=== PATIENT | male | born 1950 | race Caucasian/White ===

== ENCOUNTER 2020-07-15 10:52 | Outpatient (REF) | payer MEDICARE, BC, SELFPAY ==
[2020-07-15 12:23] LABS: Alanine Aminotransferase 24 U/L (0-40); Albumin Level 4.3 g/dL (3.5-5.0); Alkaline Phosphatase 101 U/L (39-117); Aspartate Amino Transferase 18 U/L (5-37); Bilirubin Direct 0.2 mg/dL (0.0-0.5); Bilirubin Total 0.7 mg/dL (0.0-1.0); Cholesterol 167 mg/dL; HDL Cholesterol 44 mg/dL; LDL Cholesterol Calculated 89 mg/dl; Total Protein 7.1 g/dL (6.5-8.0); Triglycerides 172 mg/dL
[2020-07-15 13:17] LABS: Reflex LDLD? No
== END 2020-07-15 10:53 | disposition home or self-care (01) ==
LOC: HO.LNP 10:52
PROVIDERS: PCP Internal Medicine; Visit Provider Internal Medicine
DX: E78.00 Pure hypercholesterolemia, unspecified (principal)
CPT/HCPCS: 80061; 80076

== ENCOUNTER 2020-11-26 16:28 | Outpatient (REF) | payer MEDICARE, BC, SELFPAY ==
[2020-11-26 16:34] LABS: Appearance Urine CLEAR; Color Urine YELLOW; Glucose Urine UA NEG (NEG); Leukocyte Esterase Urine NEG (NEG); Nitrite Urine NEG (NEG); Urine Blood NEG (NEG); Urine Ketones NEG (NEG); Urine Protein NEG (NEG-TRACE)
[2020-11-26 16:40] LABS: Bacteria Urine TRACE /LPF; RBC Urine 0 /HPF (0); WBC Urine 0 /HPF (0-4)
== END 2020-11-26 16:29 | disposition home or self-care (01) ==
LOC: HO.LNP 16:28
PROVIDERS: Visit Provider Internal Medicine
DX: R39.15 Urgency of urination (principal)
CPT/HCPCS: 81001; 87086

== ENCOUNTER → 2020-12-24 15:22 | Outpatient (BNVA) | payer MEDICARE, BC, SELFPAY | PROVIDERS: PCP Internal Medicine; Referring Provider Internal Medicine; Visit Provider Surgery | DX: K40.90 Unilateral inguinal hernia, without obstruction or gangrene, not specified as recurrent (principal) | CPT/HCPCS: 99202 ==

== ENCOUNTER 2021-01-09 10:05 | Outpatient (REF) | payer MEDICARE, BC, SELFPAY ==
[2021-01-09 10:09] LABS: MANUAL DIFF FLAG NO
[2021-01-09 10:28] LABS: Basophils Percent Auto 0.7 % (0-2); Eosinophils Absolute Auto 0.3 X10*3/uL (0.0-0.4); Eosinophils Percent Auto 4.3 % (0-4); Hematocrit 45.1 % (42-52); Hemoglobin 15.2 g/dl (14.0-18.0); Imm Gran Abs Auto 0.01 X10*3/uL (0.00-0.03); Imm Gran Pct Auto 0.2 % (0.0-0.4); Lymphocytes Absolute Auto 2.4 X10*3/uL (1.2-4.9); Lymphocytes Percent Auto 38.8 % (20-40); Mean Corpuscular HGB Conc 33.7 g/dl (31.0-36.0); Mean Corpuscular Hemoglobin 29.3 pg (27.0-33.0); Mean Corpuscular Volume 86.9 fL (80-98); Mean Platelet Volume 10.6 fL (9.4-12.4); Monocytes Absolute Auto 0.6 X10*3/uL (0.1-1.2); Monocytes Percent Auto 9.4 % (2-11); Neutrophils Absolute Auto 2.8 X10*3/uL (2.0-8.3); Neutrophils Percent Auto 46.6 % (45-73); Platelet Count 199 X10*3/uL (160-400); Red Blood Count 5.19 X10*6/uL (4.60-5.80); Red Cell Distribution Width 12.3 % (11.0-16.0); White Blood Count 6.1 X10*3/uL (4.8-10.8)
[2021-01-09 10:40] LABS: Alanine Aminotransferase 19 U/L (0-40); Albumin Level 4.3 g/dL (3.5-5.0); Alkaline Phosphatase 89 U/L (39-117); Anion Gap 11 (12-20); Aspartate Amino Transferase 16 U/L (5-37); Bilirubin Total 1.3 mg/dL (0.0-1.0); Blood Urea Nitrogen 13 mg/dL (9-16); Calcium 9.1 mg/dL (8.4-10.2); Carbon Dioxide 29 mmol/L (22-29); Chloride 107 mmol/L (96-108); Cholesterol 129 mg/dL; Estimated Glomerular Filt Rate > 60; Glucose Fasting 95 mg/dL (60-99); HDL Cholesterol 47 mg/dL; LDL Cholesterol Calculated 65 mg/dl; Sodium 143 mmol/L (135-145); Total Protein 6.8 g/dL (6.5-8.0); Triglycerides 87 mg/dL
[2021-01-09 10:53] LABS: Appearance Urine CLOUDY; Color Urine YELLOW; Glucose Urine UA NEG (NEG); Leukocyte Esterase Urine NEG (NEG); Nitrite Urine NEG (NEG); Specific Gravity - Urine 1.015 (1.005-1.025); Urine Blood NEG (NEG); Urine Ketones NEG (NEG); Urine Protein NEG (NEG-TRACE)
[2021-01-09 11:01] LABS: PSA,Total (Free>4and<10) 3.97 ng/mL (0.00-4.00)
[2021-01-09 11:32] LABS: Reflex LDLD? No
== END 2021-01-09 10:06 | disposition home or self-care (01) ==
LOC: HO.LNP 10:05
PROVIDERS: Visit Provider Internal Medicine
DX: Z12.5 Encounter for screening for malignant neoplasm of prostate (principal); E78.00 Pure hypercholesterolemia, unspecified; E87.6 Hypokalemia; N40.0 Benign prostatic hyperplasia without lower urinary tract symptoms; D72.819 Decreased white blood cell count, unspecified
CPT/HCPCS: 80053; 80061; 81003; 84153; 85025

== ENCOUNTER 2021-02-07 10:24 | Outpatient (REF) | payer MEDICARE, BC, SELFPAY ==
[2021-02-07 11:16] LABS: PSA,Total (Free>4and<10) 4.27 ng/mL (0.00-4.00)
[2021-02-10 13:21] LABS: Free Prostate Spec Ag 0.5 ng/mL; Percent Free Prostate Spec Ag 13 % (calc) (>25); Prostate Specific Ag Total 3.9 ng/mL (< OR = 4.0)
== END 2021-02-07 10:25 | disposition home or self-care (01) ==
LOC: HO.LNP 10:24
PROVIDERS: PCP Internal Medicine; Visit Provider Internal Medicine
DX: Z12.5 Encounter for screening for malignant neoplasm of prostate (principal); R97.20 Elevated prostate specific antigen [PSA]
CPT/HCPCS: 84153; 84154

== ENCOUNTER 2021-04-17 10:46 | Outpatient (REF) | payer MEDICARE, BC, SELFPAY | END 2021-04-17 10:47 | disposition home or self-care (01) | LOC: HO.LNP 10:46 | PROVIDERS: Visit Provider Internal Medicine | DX: Z12.5 Encounter for screening for malignant neoplasm of prostate (principal); N40.0 Benign prostatic hyperplasia without lower urinary tract symptoms | CPT/HCPCS: 84153 ==

== ENCOUNTER 2021-05-07 06:00 | Day surgery (SDC) | payer MEDICARE, BC, SELFPAY ==
[2021-05-01 14:59] VITALS: BMI 27.1
--- NOTE | 2021-05-06 09:07 | HO.ANESPROP2 ---
Documented by User: Brianna Zavala NP 05/06/21 09:09 HPI - Anesthesia Eval Consult details Narrative: 70yo M for Right Hernia Repair Inguinal PMFSH Active Problems Active Problems: All Active Problems (Updated 01/08/21 @ 14:34 by Nicole Cleaning RN) Puncture wound (Acute) Right inguinal hernia (Acute) Past Medical History Medical History BPH (benign prostatic hyperplasia) Hypercholesterolemia Family History Family History Father History of cancer of small intestine Paternal Grandfather Cancer of unknown origin Surgical History Surgical History H/O colonoscopy History of kidney surgery Social History Social History Are you a primary career development engineer to a significant other at home: Yes (mother, shared responsibility with siblings) Do you presently have visiting nurse or other home services: No Alcohol intake: current Patient Tobacco Use Status: Never used Tobacco Use of substances other than those prescribed or required for medical reasons: No Are you DNR?: No Advance Directives: No Advance Directives Information Provided: No Advance Directives on File: No Meds Allergies Allergy/AdvReac Type Severity Reaction Status Date / Time Iodinated Contrast Media Allergy Intermediate HIVES Verified 05/07/21 06:45 [IV Dye, Iodine Containing Contrast ] Home Medications Medication Instructions Recorded Confirmed Last Taken Type atorvastatin 40 mg tablet 40 mg PO DAILY 12/24/20 05/01/21 Unknown History tamsulosin 0.4 mg capsule 0.4 mg PO BID 12/24/20 05/01/21 Unknown History paroxetine HCl 20 mg tablet 1 tab PO DAILY 05/01/21 05/01/21 Unknown History Exam Exam Date and Time: May 06, 2021 0907 Height,Weight and Vital Signs: Height 6 ft Weight 90.718 kg Pertinent Lab Results Pertinent Lab Results: Laboratory Tests 01/09/21 01/09/21 06:55 06:55 WBC 6.1 Hgb 15.2 Hct 45.1 Plt Count 199 Sodium 143 Potassium 4.0 Chloride 107 Carbon Dioxide 29 BUN 13 Creatinine 0.87 Assessment and Plan Assessment Anesthesia Assessment: Chart Reviewed Documented by User: Nanette Sue MD 05/07/21 07:32 PMFSH Active Problems Active Problems: All Active Problems (Updated 01/08/21 @ 14:34 by Nicole Cleaning RN) Puncture wound (Acute) Right inguinal hernia (Acute) H/o sea sickness Past Medical History Medical History BPH (benign prostatic hyperplasia) Hypercholesterolemia Family History Family History Father History of cancer of small intestine Paternal Grandfather Cancer of unknown origin Family history of problems with anesthesia: No Surgical History Surgical History H/O colonoscopy History of kidney surgery History of Problems with Anesthesia: Yes (PONV with laparoscopic kidney surgery) Social History Social History Are you a primary career development engineer to a significant other at home: Yes (mother, shared responsibility with siblings) Do you presently have visiting nurse or other home services: No Alcohol intake: current Patient Tobacco Use Status: Never used Tobacco Use of substances other than those prescribed or required for medical reasons: No Are you DNR?: No Advance Directives: No Advance Directives Information Provided: No Advance Directives on File: No Meds Allergies Allergy/AdvReac Type Severity Reaction Status Date / Time Iodinated Contrast Media Allergy Intermediate HIVES Verified 05/07/21 06:45 [IV Dye, Iodine Containing Contrast ] Home Medications Medication Instructions Recorded Confirmed Last Taken Type atorvastatin 40 mg tablet 40 mg PO DAILY 12/24/20 05/01/21 Unknown History tamsulosin 0.4 mg capsule 0.4 mg PO BID 12/24/20 05/01/21 Unknown History paroxetine HCl 20 mg tablet 1 tab PO DAILY 05/01/21 05/01/21 Unknown History Exam Height,Weight and Vital Signs: Height 6 ft Weight 90.718 kg Vital Signs Temp Pulse Resp BP Pulse Ox 05/07/21 06:26 97.5 F 61 18 131/98 H 97 Airway Mallampati Class: II TM Dist: >3cm Neck ROM: Full Loose/Missing/Broken Teeth: No Heart: RRR Lungs: CTAB Assessment and Plan Assessment Anesthesia Assessment: Anesthesia Plan Discussed Final Anesthetic Review Family History of Problems with Anesthesia: No History of Problems with Anesthesia: Yes (PONV with laparoscopic kidney surgery) NPO: Yes ASA Class: II Final Preanesthetic Review: No Changes in Pt Med Stat, Meds/Allgs Chart Reviewed, Consent Obtained/Reviewed and Anes Risks/Benef Reviewed Patient Risk: Low Procedure Risk: Low Assessment/Block/Sedation in SS: Assess/Block/Sedation-SS Anesthetic Plan Anesthetic Plan: GA Disposition: Standard PACU
[2021-05-07 06:26] VITALS: BP 131/98; PULSE 61; RESP 18; TEMP 36.4; O2SAT 97
[2021-05-07] MEDS: Lactated Ringers 1,000 ML 100 ML IVCONT (06:42)
[2021-05-07] MEDS: Scopolamine 1.5 MG PATCH.TD.3 TRANSDERMA (07:29)
--- NOTE | 2021-05-07 07:30 | P.HPSUR_ITS ---
Pre-Procedural Eval Section A Date of Service: 05/07/21 The patient is an INPATIENT: No Changes since office visit: Yes Patient answered all questions; No Cold of Flu in the past 2 weeks, No New Medical Problems and No Changes in Medication The History & Physical has been completed within 30 days and I have reviewed it.: No Section B Chief Complaint: Right Inguinal hernia Details of Present Illness: Progressive increase in the right inguinal discomfort, with swelling in the right groin Relevant Family History (Specify if Yes): No Relevant Social History: None Present Medications: see Short Stay Collaborative assessment Medical History: No relevant PMH History of Previous Operations: No relevant previous surgery Allergies: Allergies Allergy/AdvReac Type Severity Reaction Status Date / Time Iodinated Contrast Allergy Intermediate HIVES Verified 05/07/21 06:45 Media [IV Dye, Iodine Containing Contrast ] Review of Systems Sugical H&P ROS: Negative: Constitution, Cardiovascular, Respiratory, Neurological, Psychiatric, Hem-Onc, Allergic/Immunologic, Gastrointestinal, Genitourinary, Musculoskeletal, Integumentary, Endocrine and Eyes/Ears/Nose /Throat Exam Surgical H&P Exam: Normal: HEENT, Normal: Heart, Normal: Lungs, Normal: Extremities, Normal: Abdomen (RIH reducible), Normal: Skin and Normal: Neurological Plan Diagnosis/Plan: Unchanged I have reviewed the history and physical and performed a pertinent physical examination on my patient. No changes have occurred unless specified.
--- NOTE | 2021-05-07 08:34 | P.OP_ITS ---
Operative Note Operative Note Date of Service: 05/07/21 Narrative: Preoperative diagnosis: right Inguinal hernia Postoperative diagnosis: same Procedure: repair of right inguinal hernia with Surgeon: Bk Cain MD Licensed Journeyman Electrician: none Anesthesia: general LMA Indications for procedure: 70-year-old male patient presenting with painful lump in the right groin. The pain is been increasing in severity he has requested repair of this right inguinal hernia. Operative findings: Large direct right inguinal hernia Specimen: none Estimated blood loss: 2 mL Complications: none Procedure details: patient was brought to the OR placed in a supine position. After administering general anesthesia the patient's abdomen was prepped with ChloraPrep and draped in a sterile fashion. a surgical time-out was called the consent confirmed. Patient received preoperative antibiotics and Venodyne boots were in place. Local anesthesia consisting of Sensorcaine 0.5% was infiltrated over the right inguinal ligament. Incision was then made with scalpel carried out through subcutaneous tissue past Silvia's fascia and up to the external oblique aponeurosis. Additional local was infiltrated below the external oblique aponeurosis. This was then incised with a scalpel wide with the Metzenbaum scissors. Spermatic cord was then dissected free surrounding inguinal canal and retracted using a Rexford drain. A large direct hernia was identified. Fibers of the cremasteric muscle were and no indirect hernia sac could be identified. Attention was then directed to the floor of the inguinal canal. The direct sac was dissected free from the spermatic cord. Fibers of the internal oblique and transversalis aponeurosis were then divided in the preperitoneal space entered. This pace was further defined using an open Ray- Niranjan sponge. A large PHS mesh was then obtained. The circular underlay was then deployed into the preperitoneal space. The overlay was then secured to the pubic tubercle, conjoined tendon, and shelving edge of the inguinal ligament using a 0 Polysorb suture. A slit was made in the mesh in the mesh wrapped around the spermatic cord at the internal ring. This was then secured to the shelving edge of the inguinal ligament using 0 Polysorb suture. The tip of the index finger was easily passing at the internal ring therefore a 2nd stitch was placed high in the internal ring to allow only the tip of the index finger to pass. The remainder of the lateral portion of the mesh was placed below the external oblique aponeurosis. External oblique aponeurosis was then closed using a running 2 0 Polysorb suture. Silvia's fascia and dermis were reapproximated using interrupted 3-0 Polysorb sutures. Skin was then closed using a running subcuticular 4-0 Polysorb suture. Steri-Strips 2 x 2 gauze and Tegaderm were then applied. The patient tolerated the procedure well. Sponge, instrument, and needle counts reported as correct. The patient was transferred to PACU in stable condition.
[2021-05-07 08:39] VITALS: BP 130/69; PULSE 78; RESP 16; TEMP 36.2; O2SAT 99
[2021-05-07 08:45] VITALS: BP 148/85; PULSE 72; RESP 16; O2SAT 96
[2021-05-07 08:50] VITALS: BP 135/77; PULSE 68; RESP 14; O2SAT 98
[2021-05-07 08:55] VITALS: BP 142/70; PULSE 82; RESP 17; O2SAT 96
[2021-05-07 09:10] VITALS: BP 138/80; PULSE 65; RESP 17; TEMP 36.2; O2SAT 98
== END 2021-05-07 10:00 | disposition home or self-care (01) ==
PROVIDERS: PCP Internal Medicine; Visit Provider Surgery
PROC: (CPT 49505; principal; 2021-05-07 07:30)
DX: K40.90 Unilateral inguinal hernia, without obstruction or gangrene, not specified as recurrent (principal); E78.00 Pure hypercholesterolemia, unspecified; N40.0 Benign prostatic hyperplasia without lower urinary tract symptoms; Z79.899 Other long term (current) drug therapy; Z91.041 Radiographic dye allergy status; Z98.890 Other specified postprocedural states
CPT/HCPCS: 49505; C1781; J0690; J1100; J1885; J2250; J2405; J3010

== ENCOUNTER → 2021-05-15 09:53 | Outpatient (BNVA) | payer MEDICARE, BC, SELFPAY | PROVIDERS: PCP Internal Medicine; Referring Provider Internal Medicine; Visit Provider Surgery | DX: Z48.815 Encounter for surgical aftercare following surgery on the digestive system (principal); Z87.19 Personal history of other diseases of the digestive system | CPT/HCPCS: 99212 ==

== ENCOUNTER → 2021-06-12 10:51 | Outpatient (BNVA) | payer MEDICARE, BC, SELFPAY | PROVIDERS: PCP Internal Medicine; Visit Provider Surgery | DX: Z48.815 Encounter for surgical aftercare following surgery on the digestive system (principal); Z87.19 Personal history of other diseases of the digestive system; Z98.890 Other specified postprocedural states | CPT/HCPCS: 99212 ==

== ENCOUNTER 2021-08-01 10:32 | Outpatient (REF) | payer MEDICARE, BC, SELFPAY ==
[2021-08-01 10:51] LABS: Alanine Aminotransferase 19 U/L (0-40); Alkaline Phosphatase 101 U/L (39-117); Aspartate Amino Transferase 16 U/L (5-37); Bilirubin Direct 0.3 mg/dL (0.0-0.5); Bilirubin Total 0.7 mg/dL (0.0-1.0); Cholesterol 152 mg/dL; HDL Cholesterol 48 mg/dL; LDL Cholesterol Calculated 87 mg/dl; Total Protein 6.8 g/dL (6.5-8.0); Triglycerides 89 mg/dL
[2021-08-01 11:16] LABS: PSA,Total (Free>4and<10) 4.36 ng/mL (0.00-4.00)
[2021-08-01 11:23] LABS: Reflex LDLD? No
[2021-08-04 11:21] LABS: Free Prostate Spec Ag 0.8 ng/mL; Percent Free Prostate Spec Ag 19 % (calc) (>25); Prostate Specific Ag Total 4.2 ng/mL (< OR = 4.0)
== END 2021-08-01 10:33 | disposition home or self-care (01) ==
LOC: HO.LNP 10:32
PROVIDERS: Visit Provider Internal Medicine
DX: Z12.5 Encounter for screening for malignant neoplasm of prostate (principal); E78.00 Pure hypercholesterolemia, unspecified; N40.0 Benign prostatic hyperplasia without lower urinary tract symptoms
CPT/HCPCS: 80061; 80076; 84153; 84154

== ENCOUNTER 2021-09-11 10:48 | Outpatient (REF) | payer MEDICARE, BC, SELFPAY ==
[2021-09-11 12:21] LABS: PSA,Total (Free>4and<10) 4.05 ng/mL (0.00-4.00)
[2021-09-12 11:21] LABS: Free Prostate Spec Ag 0.7 ng/mL; Percent Free Prostate Spec Ag 19 % (calc) (>25); Prostate Specific Ag Total 3.6 ng/mL (< OR = 4.0)
== END 2021-09-11 10:49 | disposition home or self-care (01) ==
LOC: HO.LNP 10:48
PROVIDERS: Visit Provider Internal Medicine
DX: Z12.5 Encounter for screening for malignant neoplasm of prostate (principal); N40.0 Benign prostatic hyperplasia without lower urinary tract symptoms
CPT/HCPCS: 84153; 84154

== ENCOUNTER 2022-01-09 11:33 | Outpatient (REF) | payer MEDICARE, BC, SELFPAY ==
[2022-01-09 11:38] LABS: MANUAL DIFF FLAG NO
[2022-01-09 12:06] LABS: Basophils Absolute Auto 0.1 X10*3/uL (0.0-0.2); Eosinophils Absolute Auto 0.3 X10*3/uL (0.0-0.4); Eosinophils Percent Auto 6.8 % (0-4); Hematocrit 44.7 % (42.0-52.0); Hemoglobin 15.1 g/dl (14.0-18.0); Imm Gran Abs Auto 0.01 X10*3/uL (0.00-0.03); Imm Gran Pct Auto 0.2 % (0.0-0.4); Lymphocytes Percent Auto 39.6 % (20-40); Mean Corpuscular HGB Conc 33.8 g/dl (31.0-36.0); Mean Corpuscular Hemoglobin 29.4 pg (27.0-33.0); Mean Platelet Volume 10.7 fL (9.4-12.4); Monocytes Absolute Auto 0.4 X10*3/uL (0.1-1.2); Monocytes Percent Auto 8.7 % (2-11); Neutrophils Absolute Auto 2.2 x10*3/uL (2.0-8.3); Neutrophils Percent Auto 43.7 % (45-73); Platelet Count 177 X10*3/uL (160-400); Red Blood Count 5.14 X10*6/uL (4.60-5.80); Red Cell Distribution Width 12.5 % (11.0-16.0)
[2022-01-09 12:08] LABS: Appearance Urine Clear; Color Urine Yellow; Glucose Urine UA Negative (Negative); Leukocyte Esterase Urine Negative (Negative); Nitrite Urine Negative (Negative); Urine Blood Negative (Negative); Urine Ketones Negative (Negative); Urine Protein Negative (Neg-Trace)
[2022-01-09 12:11] LABS: Bacteria Urine None Seen (None Seen); Hyaline Casts Urine 0-2 /LPF (0-2); RBC Urine 0-2 /HPF (0-2); Squamous Epithelial Cell Urine 0-2 /HPF (0-2); WBC Urine 0-5 /HPF (0-5)
[2022-01-09 12:17] LABS: Alanine Aminotransferase 16 U/L (0-40); Albumin Level 4.1 g/dL (3.5-5.0); Alkaline Phosphatase 89 U/L (39-117); Anion Gap 14 (12-20); Aspartate Amino Transferase 15 U/L (5-37); Bilirubin Total 0.7 mg/dL (0.0-1.0); Blood Urea Nitrogen 14 mg/dL (9-16); Calcium 8.6 mg/dL (8.4-10.2); Carbon Dioxide 26 mmol/L (22-29); Chloride 107 mmol/L (96-108); Cholesterol 161 mg/dL; Estimated Glomerular Filt Rate > 60; Glucose Fasting 91 mg/dL (60-99); HDL Cholesterol 44 mg/dL; LDL Cholesterol Calculated 95 mg/dl; Potassium 3.9 mmol/L (3.3-5.1); Sodium 143 mmol/L (135-145); Total Protein 6.6 g/dL (6.5-8.0); Triglycerides 111 mg/dL
[2022-01-09 12:38] LABS: PSA,Total (Free>4and<10) 3.82 ng/mL (0.00-4.00)
== END 2022-01-09 11:34 | disposition home or self-care (01) ==
LOC: HO.LNP 11:33
PROVIDERS: Visit Provider Internal Medicine
DX: E78.00 Pure hypercholesterolemia, unspecified (principal); N40.0 Benign prostatic hyperplasia without lower urinary tract symptoms; D72.819 Decreased white blood cell count, unspecified; E87.6 Hypokalemia; Z12.5 Encounter for screening for malignant neoplasm of prostate
CPT/HCPCS: 80053; 80061; 81001; 84153; 85025

== ENCOUNTER 2022-07-17 10:49 | Outpatient (REF) | payer MEDICARE, BC, SELFPAY ==
[2022-07-17 12:20] LABS: Alanine Aminotransferase 20 U/L (0-40); Albumin Level 4.1 g/dL (3.5-5.0); Alkaline Phosphatase 98 U/L (39-117); Aspartate Amino Transferase 16 U/L (5-37); Bilirubin Direct 0.3 mg/dL (0.0-0.5); Bilirubin Total 1.1 mg/dL (0.0-1.0); Cholesterol 167 mg/dL; HDL Cholesterol 48 mg/dL; LDL Cholesterol Calculated 100 mg/dl; Total Protein 6.8 g/dL (6.5-8.0); Triglycerides 95 mg/dL
[2022-07-17 14:56] LABS: Reflex LDLD? No
== END 2022-07-17 10:50 | disposition home or self-care (01) ==
LOC: HO.LNP 10:49
PROVIDERS: Visit Provider Internal Medicine
DX: E78.00 Pure hypercholesterolemia, unspecified (principal)
CPT/HCPCS: 80061; 80076

== ENCOUNTER 2022-11-06 10:40 | Day surgery (SDC) | payer MEDICARE, BC, SELFPAY ==
[2022-11-06 06:30] VITALS: BMI 29.7
--- OUTSIDE RECORDS SUMMARY | 2022-11-06 10:41 | XMS_ITS | Continuity of Care Document ---
Author Name Unknown Organization [facility] Address Unknown Care Team Providers Care Customer Relations Coordinator Name Role Phone Brenden Sapp MD Primary Care Physician [phone] En[place] [facility] [place](s): 01/03/21 - 02/02/21 [facility] Attending Physician: Marlena Price Admitting Physician: Marlena Price Referring Physician: trMarlena Allergies, Adverse Reactions, Alerts Substance Reaction Severity Status Contrast Dye Active Immunizations Given and Recorded Vaccine Date Status Refusal Reason pneumococcal 23-valent vaccine 02/21/11 Given Medications indapamide 2.5 mg oral tablet 1 tablet = 2.5 mg, By Mouth, Daily in AM, 0 Refills, Maintenance Start Date: 01/29/11 Status: Ordered paroxetine 20 mg oral tablet 1 tablet = 20 mg, By Mouth, Daily in AM, 0 Refills, Maintenance Start Date: 01/29/11 Status: Ordered pravastatin 40 mg oral tablet 1 tablet = 40 mg, By Mouth, Daily at bedtime, 0 Refills, Maintenance Start Date: 01/29/11 Status: Ordered
--- OUTSIDE RECORDS SUMMARY | 2022-11-06 10:41 | XMS_ITS | Continuity of Care Document ---
Author Name Unknown Organization [facility] Address Unknown Care Team Providers Care Fire Control System Installer Name Role Phone Brenden Sapp MD Primary Care Physician [phone] Encounter [facility] [place] Date(s): 11/27/20 - 02/02/21 [facility] Attending Physician: Juan Danielle MD Referring Physician: Brenden Sapp MD Allergies, Adverse Reactions, Alerts Substance Reaction Severity [...]
[2022-11-06 11:22] VITALS: BP 162/85; PULSE 53; RESP 17; TEMP 36.1; O2SAT 96
[2022-11-06] MEDS: Lactated Ringers 1,000 ML 50 ML IVCONT (11:42)
--- NOTE | 2022-11-06 13:07 | P.CONAN_ITS ---
HPI - Anesthesia Eval Consult details Narrative: screening, personal history of polyp PMFSH Active Problems Active Problems: All Active Problems (Updated 11/05/22 @ 14:32 by Deedee Dan RN) Puncture wound (Acute) Right inguinal hernia (Acute) S/P inguinal hernia repair (Acute 05/07/21) Past Medical History Medical History (Updated 11/05/22 @ 14:32 by Deedee Dan RN) BPH (benign prostatic hyperplasia) Cancer of kidney HTN (hypertension) Hypercholesterolemia Family History Family History Father History of cancer of small intestine Paternal Grandfather Cancer of unknown origin Family history of problems with anesthesia: No Surgical History Surgical History (Updated 11/05/22 @ 14:32 by Deedee Dan RN) H/O adenoidectomy H/O colonoscopy History of kidney surgery S/P inguinal hernia repair (05/07/21) History of Problems with Anesthesia: Yes (PONV with laparoscopic kidney surgery) Social History Social History Are you a primary critical care nurse practitioner to a significant other at home: Yes (mother, shared responsibility with siblings) Do you presently have visiting nurse or other home services: No Alcohol intake: current Alcohol intake frequency: does not drink Patient Tobacco Use Status: Never used Tobacco Advance Directives: No Advance Directives Information Provided: Yes Meds Allergies Allergy/AdvReac Type Severity Reaction Status Date / Time Iodinated Contrast Media Allergy Intermediate HIVES Verified 05/15/21 10:09 [IV Dye, Iodine Containing Contrast ] Active Medications: Current Medications Lactated Ringer's (Lr) 1,000 mls @ 50 mls/hr IVCONT .Q20H RAYRAY Last Admin: 11/06/22 11:42 Dose: 50 mls/hr Home Medications Medication Instructions Recorded Confirmed Last Taken Type atorvastatin 40 mg tablet 40 mg PO DAILY 12/24/20 05/15/21 Unknown History tamsulosin 0.4 mg capsule 0.4 mg PO BID 12/24/20 05/15/21 Unknown History paroxetine HCl 20 mg tablet 1 tab PO DAILY 05/01/21 05/15/21 Unknown History Exam Exam Date and Time: November 06, 2022 1307 Height,Weight and Vital Signs: Height 5 ft 10.5 in Weight 95.254 kg Last Vital Signs Temp 97 F 11/06/22 11:22 Pulse 53 11/06/22 11:22 Resp 17 11/06/22 11:22 BP 162/85 H 11/06/22 11:22 Pulse Ox 96 11/06/22 11:22 O2 Del Method Room Air 11/06/22 11:22 Airway Mallampati Class: I TM Dist: >3cm Neck ROM: Full Loose/Missing/Broken Teeth: No Heart: rr Lungs: cta Assessment and Plan Final Anesthetic Review Family History of Problems with Anesthesia: No History of Problems with Anesthesia: Yes (PONV with laparoscopic kidney surgery) NPO: Yes ASA Class: II Final Preanesthetic Review: No Changes in Pt Med Stat, Meds/Allgs Chart Reviewed, Consent Obtained/Reviewed and Anes Risks/Benef Reviewed Patient Risk: Low Procedure Risk: Low Anesthetic Plan Anesthetic Plan: MAC: Disposition: Standard PACU
--- NOTE | 2022-11-06 13:22 | P.HPSUR_ITS ---
Pre-Procedural Eval Section A Date of Service: 11/06/22 Section B Chief Complaint: Encounter for screening for malignant neoplasm of Details of Present Illness: see H&P Relevant Family History (Specify if Yes): No Relevant Social History: None Present Medications: see Short Stay Collaborative assessment Medical History: No relevant PMH History of Previous Operations: No relevant previous surgery Allergies: Allergies Allergy/AdvReac Type Severity Reaction Status Date / Time Iodinated Contrast Media Allergy Intermediate HIVES Verified 05/15/21 10:09 [IV Dye, Iodine Containing Contrast ] Review of Systems Sugical H&P ROS: Negative: Constitution, Cardiovascular, Respiratory, Neurological, Psychiatric, Hem-Onc, Allergic/Immunologic, Gastrointestinal, Genitourinary, Musculoskeletal, Integumentary, Endocrine and Eyes/Ear s/Nose/Throat Exam Surgical H&P Exam: Normal: HEENT, Normal: Heart, Normal: Lungs, Normal: Extremities, Normal: Abdomen, Normal: Skin and Normal: Neurological Plan Diagnosis/Plan: Unchanged I have reviewed the history and physical and performed a pertinent physical examination on my patient. No changes have occurred unless specified. Time Spent With Patient Time: Total time managing care of this patient today ____ minutes.
[2022-11-06 13:55] VITALS: BP 120/67; PULSE 57; RESP 16; TEMP 36.1; O2SAT 95
[2022-11-06 14:10] VITALS: BP 122/77; PULSE 52; RESP 16; O2SAT 95
--- NOTE | 2022-11-06 14:20 | OP_ITS ---
DATE OF SERVICE: 11/06/2022 SURGEON: Bartolome Landeros MD INDICATIONS: Colon cancer screening and prior history of polyps. PREOPERATIVE DIAGNOSIS: POSTOPERATIVE DIAGNOSIS: PROCEDURE PERFORMED: Colonoscopy to the terminal ileum with biopsy. ESTIMATED BLOOD LOSS: COMPLICATIONS: ANESTHESIA: Monitored anesthesia care. ASSISTANTS: SPECIMENS: DESCRIPTION OF PROCEDURE: A history and physical was performed. The risks and benefits of the procedure were explained to the patient. Informed consent was obtained. The patient was placed in the left lateral decubitus position. A digital rectal exam was performed and was found to be normal. The Olympus pediatric video colonoscope was introduced into the rectum and advanced to the cecum. The cecum was identified by transillumination, palpation, and identification of ileocecal valve. Examination was performed. The scope was removed. He tolerated the procedure well and was returned to the recovery area in stable condition. FINDINGS: The terminal ileum was examined and appeared normal. The visualized colonic mucosa was normal. The quality of the prep was good. There was mild sigmoid diverticulosis. A single polyp measuring less than 5 mm at 45 cm was removed with a biopsy forceps. No other polyps were identified. Retroflexed examination showed small internal hemorrhoids. IMPRESSION: Colon polyp. RECOMMENDATION: Follow up the biopsy results. MD KEITH Syed/SADAL / [id number]
[2022-11-06 14:25] VITALS: BP 135/83; PULSE 67; RESP 20; TEMP 36.1; O2SAT 96
== END 2022-11-06 14:46 | disposition home or self-care (01) ==
PROVIDERS: PCP Internal Medicine; Visit Provider Internal Medicine Gastroenterology
PROC: 0DJD8ZZ Inspection of Lower Intestinal Tract, Via Natural or Artificial Opening Endoscopic (ICD-10-PCS; CPT 45378; principal; 2022-11-06 11:50)
DX: Z12.11 Encounter for screening for malignant neoplasm of colon (principal); Z86.010 Personal history of colon polyps; Z80.0 Family history of malignant neoplasm of digestive organs; K63.5 Polyp of colon; K57.30 Diverticulosis of large intestine without perforation or abscess without bleeding; K64.8 Other hemorrhoids; K58.1 Irritable bowel syndrome with constipation; N40.0 Benign prostatic hyperplasia without lower urinary tract symptoms; I10 Essential (primary) hypertension; E78.5 Hyperlipidemia, unspecified; Z79.899 Other long term (current) drug therapy; Z85.528 Personal history of other malignant neoplasm of kidney; Z87.442 Personal history of urinary calculi; Z98.890 Other specified postprocedural states
CPT/HCPCS: 45380; 88305

== ENCOUNTER 2023-01-29 10:43 | Outpatient (REF) | payer MEDICARE, BC, SELFPAY ==
[2023-01-29 10:47] LABS: MANUAL DIFF FLAG NO
[2023-01-29 11:11] LABS: Basophils Percent Auto 0.7 % (0-2); Eosinophils Absolute Auto 0.5 X10*3/uL (0.0-0.4); Eosinophils Percent Auto 8.1 % (0-4); Hematocrit 44.9 % (42.0-52.0); Hemoglobin 15.3 g/dl (14.0-18.0); Imm Gran Abs Auto 0.01 X10*3/uL (0.00-0.03); Imm Gran Pct Auto 0.2 % (0.0-0.4); Lymphocytes Absolute Auto 2.1 X10*3/uL (1.2-4.9); Lymphocytes Percent Auto 36.7 % (20-40); Mean Corpuscular HGB Conc 34.1 g/dl (31.0-36.0); Mean Corpuscular Hemoglobin 29.4 pg (27.0-33.0); Mean Corpuscular Volume 86.3 fL (80.0-98.0); Mean Platelet Volume 10.4 fL (9.4-12.4); Monocytes Absolute Auto 0.5 X10*3/uL (0.1-1.2); Monocytes Percent Auto 9.1 % (2-11); Neutrophils Absolute Auto 2.6 x10*3/uL (2.0-8.3); Neutrophils Percent Auto 45.2 % (45-73); Platelet Count 194 X10*3/uL (160-400); Red Cell Distribution Width 12.4 % (11.0-16.0); White Blood Count 5.7 X10*3/uL (4.8-10.8)
[2023-01-29 11:12] LABS: Appearance Urine Clear; Color Urine Yellow; Glucose Urine UA Negative (Negative); Leukocyte Esterase Urine Negative (Negative); Nitrite Urine Negative (Negative); PH 6.5 (5.0-9.0); Urine Blood Negative (Negative); Urine Ketones Negative (Negative); Urine Protein Negative (Neg-Trace)
[2023-01-29 11:18] LABS: Bacteria Urine None Seen (None Seen); Hyaline Casts Urine 0-2 /LPF (0-2); RBC Urine 0-2 /HPF (0-2); Squamous Epithelial Cell Urine 0-2 /HPF (0-2); WBC Urine 0-5 /HPF (0-5)
[2023-01-29 11:33] LABS: Alanine Aminotransferase 19 U/L (0-40); Alkaline Phosphatase 88 U/L (39-117); Anion Gap 13 (12-20); Aspartate Amino Transferase 18 U/L (5-37); Bilirubin Total 0.9 mg/dL (0.0-1.0); Blood Urea Nitrogen 13 mg/dL (9-16); Calcium 9.1 mg/dL (8.4-10.2); Carbon Dioxide 26 mmol/L (22-29); Chloride 105 mmol/L (96-108); Cholesterol 148 mg/dL (<200); Estimated Glomerular Filt Rate > 60; Glucose Fasting 91 mg/dL (60-99); HDL Cholesterol 45 mg/dL (>40); LDL Cholesterol Calculated 81 mg/dL (<100); Potassium 3.8 mmol/L (3.3-5.1); Sodium 140 mmol/L (135-145); Total Protein 6.9 g/dL (6.5-8.0); Triglycerides 111 mg/dL (<150)
[2023-01-29 11:52] LABS: PSA,Total (Free>4and<10) 6.22 ng/mL (0.00-4.00)
[2023-02-01 10:58] LABS: Free Prostate Spec Ag 0.8 ng/mL; Percent Free Prostate Spec Ag 14 % (calc) (>25); Prostate Specific Ag Total 5.6 ng/mL (< OR = 4.0)
== END 2023-01-29 10:44 | disposition home or self-care (01) ==
LOC: HO.LNP 10:43
PROVIDERS: Visit Provider Internal Medicine
DX: Z12.5 Encounter for screening for malignant neoplasm of prostate (principal); E78.00 Pure hypercholesterolemia, unspecified; E87.5 Hyperkalemia; D72.819 Decreased white blood cell count, unspecified; N40.0 Benign prostatic hyperplasia without lower urinary tract symptoms
CPT/HCPCS: 80053; 80061; 81001; 84153; 84154; 85025

== ENCOUNTER 2023-05-14 09:49 | Outpatient (AMB) | payer MEDICARE, BC, SELFPAY ==
--- NOTE | 2023-05-14 10:03 | A.OFFVIS_ITS ---
Intake Vital Signs 3 05/14/23 10:05 Height 5 ft 10.5 in Weight 215 lb 2 oz BMI 30.4 BP 158/87 H Blood Pressure Location Lt brachial Position Sitting Pulse 69 Intake Visit Reasons: Right groin pain, ? hernia Intake Note: Patient is seen in office for follow up visit, following right groin pain. Pt c/o: always had discomfort for the past couple of months is getting painful, does not feel a lump, admits to constipation, straining, once had blood on stool, denies nausea, vomit, diarrhea L.OV:06/12/21 Shoe Planner Required: No Accompanied by: se Allergies Iodinated Contrast Media [IV Dye, Iodine Containing Contrast ] Allergy (Intermediate, Verified 05/14/23 10:04) HIVES Medication List - Last Reconciled 05/14/23 by Bk Cain MD atorvastatin 40 mg PO DAILY paroxetine HCl 1 tab PO DAILY tamsulosin 0.4 mg PO BID HPI HPI Comments 2 History of Present Illness0 Details 72-year-old male patient returning statu s post repair of a right inguinal hernia with mesh in 2021 now with a proximally one-month history of pain in the right groin. The pain is felt mostly when getting out of sitting position. He has been baby-sitting his 2 grandchildren and doing some lifting as a result. He is uncertain if this is what caused the injury. Denies any palpable lump, nausea, vomiting, or recent bowel changes. [facility] Medical History HTN (hypertension) Cancer of kidney BPH (benign prostatic hyperplasia) Hypercholesterolemia Surgical History H/O adenoidectomy S/P inguinal hernia repair (05/07/21) H/O colonoscopy History of kidney surgery Family History Father History of cancer of small intestine Paternal Grandfather Cancer of unknown origin Social History Are you a primary animal caretaker supervisor to a significant other at home: Yes (mother, shared responsibility with siblings) Do you presently have visiting nurse or other home services: No Alcohol intake: current Alcohol intake frequency: does not drink Patient Tobacco Use Status: Never used Tobacco Review of Systems Const All systems reviewed & are unremarkable except as noted in HPI and below Physical Exam Vital Signs: Last Vital Signs Pulse 69 05/14/23 10:05 BP 158/87 H 05/14/23 10:05 BMI result Body Mass Index 30.4 Const General: comfortable and no acute distress Nutritional Appearance: well nourished Orientation/consciousness: patient oriented x3 Resp Effort & Inspection: normal respiratory effort, no audible wheezes, no cough and no respiratory distress GI Other: Soft, nondistended, nontender, well-healed incision in the right groin with no palpable hernia noted with Valsalva maneuvers. Minimal tenderness elicited the pubis. This may indicate muscle pull causing the discomfort. Abdomen image: 2 1. Site of tenderness right groin Skin General skin exam: no rashes or lesions noted Neuro General: patient oriented x3 Extrem General: Yes no clubbing, cyanosis or edema Assessment & Plan Assessment & Plan (1) Right inguinal hernia: Code(s): K40.90 - Unilateral inguinal hernia, without obstruction or gangrene, not specified as recurrent Plan 72-year-old male patient presenting with previous history of right inguinal hernia repair now returning with some discomfort noted recently in the right groin. On examination he has a well-healed hernia incision with no evidence of infection or hernia recurrence. Minimal tenderness is elicited with deep palpation. Discomfort appears to be more from muscle strain rather than hernia recurrence. He should follow up as needed. Coding Level of Care Code Est Pt Level 3 (68229) Diagnoses Right inguinal hernia K40.90
[2023-05-14 10:05] VITALS: BP 158/87; PULSE 69; BMI 30.4
== END 2023-05-14 10:24 | disposition home or self-care (01) ==
PROVIDERS: PCP Internal Medicine; Referring Provider Internal Medicine; Visit Provider Surgery
DX: K40.90 Unilateral inguinal hernia, without obstruction or gangrene, not specified as recurrent (principal)
CPT/HCPCS: 99213

== ENCOUNTER → 2023-05-14 09:49 | Outpatient (BNVA) | payer MEDICARE, BC, SELFPAY | PROVIDERS: PCP Internal Medicine; Referring Provider Internal Medicine; Visit Provider Surgery | DX: K40.90 Unilateral inguinal hernia, without obstruction or gangrene, not specified as recurrent (principal) | CPT/HCPCS: 99212 ==

== ENCOUNTER 2023-07-30 11:25 | Outpatient (REF) | payer MEDICARE, BC, SELFPAY ==
[2023-07-30 12:37] LABS: Alanine Aminotransferase 20 U/L (0-40); Alkaline Phosphatase 91 U/L (39-117); Aspartate Amino Transferase 18 U/L (5-37); Bilirubin Direct 0.3 mg/dL (0.0-0.5); Bilirubin Total 0.7 mg/dL (0.0-1.0); Cholesterol 150 mg/dL (<200); HDL Cholesterol 44 mg/dL (>40); LDL Cholesterol Calculated 89 mg/dL (<100); Triglycerides 86 mg/dL (<150)
[2023-07-30 14:23] LABS: Reflex LDLD? No
== END 2023-07-30 11:26 | disposition home or self-care (01) ==
LOC: HO.LNP 11:25
PROVIDERS: Visit Provider Internal Medicine
DX: E78.00 Pure hypercholesterolemia, unspecified (principal)
CPT/HCPCS: 80061; 80076

== ENCOUNTER 2024-02-04 11:25 | Outpatient (REF) | payer MEDICARE, BC, SELFPAY ==
[2024-02-04 11:30] LABS: MANUAL DIFF FLAG NO
[2024-02-04 12:03] LABS: Appearance Urine Cloudy; Basophils Percent Auto 0.6 % (0-2); Color Urine Yellow; Eosinophils Absolute Auto 0.4 X10*3/uL (0.0-0.4); Eosinophils Percent Auto 6.9 % (0-4); Glucose Urine UA Negative (Negative); Hematocrit 43.6 % (42.0-52.0); Hemoglobin 14.9 g/dl (14.0-18.0); Imm Gran Abs Auto 0.01 X10*3/uL (0.00-0.03); Imm Gran Pct Auto 0.2 % (0.0-0.4); Leukocyte Esterase Urine Negative (Negative); Lymphocytes Absolute Auto 2.2 X10*3/uL (1.2-4.9); Lymphocytes Percent Auto 42.6 % (20-40); Mean Corpuscular HGB Conc 34.2 g/dl (31.0-36.0); Mean Corpuscular Hemoglobin 29.6 pg (27.0-33.0); Mean Corpuscular Volume 86.7 fL (80.0-98.0); Mean Platelet Volume 10.3 fL (9.4-12.4); Monocytes Absolute Auto 0.5 X10*3/uL (0.1-1.2); Neutrophils Absolute Auto 2.1 x10*3/uL (2.0-8.3); Neutrophils Percent Auto 40.7 % (45-73); Nitrite Urine Negative (Negative); Platelet Count 186 X10*3/uL (160-400); Red Blood Count 5.03 X10*6/uL (4.60-5.80); Red Cell Distribution Width 12.5 % (11.0-16.0); Specific Gravity - Urine 1.025 (1.005-1.025); Urine Blood Negative (Negative); Urine Ketones Negative (Negative); Urine Protein Negative (Neg-Trace); White Blood Count 5.2 X10*3/uL (4.8-10.8)
[2024-02-04 12:12] LABS: Bacteria Urine None Seen (None Seen); Hyaline Casts Urine 0-2 /LPF (0-2); RBC Urine 0-2 /HPF (0-2); Squamous Epithelial Cell Urine 0-2 /HPF (0-2); WBC Urine 0-5 /HPF (0-5)
[2024-02-04 12:43] LABS: PSA,Total (Free>4and<10) 7.07 ng/mL (0.00-4.00)
[2024-02-04 13:04] LABS: Alanine Aminotransferase 24 U/L (0-40); Albumin Level 3.9 g/dL (3.5-5.0); Alkaline Phosphatase 84 U/L (39-117); Anion Gap 11 (12-20); Aspartate Amino Transferase 23 U/L (5-37); Bilirubin Total 0.9 mg/dL (0.0-1.0); Blood Urea Nitrogen 16 mg/dL (9-16); Calcium 8.9 mg/dL (8.4-10.2); Carbon Dioxide 26 mmol/L (22-29); Chloride 108 mmol/L (96-108); Cholesterol 140 mg/dL (<200); Estimated Glomerular Filt Rate > 60; Glucose Fasting 92 mg/dL (60-99); HDL Cholesterol 43 mg/dL (>40); LDL Cholesterol Calculated 76 mg/dL (<100); Potassium 3.8 mmol/L (3.3-5.1); Sodium 141 mmol/L (135-145); Total Protein 6.7 g/dL (6.5-8.0); Triglycerides 107 mg/dL (<150)
[2024-02-07 11:48] LABS: Free Prostate Spec Ag 1.2 ng/mL; Percent Free Prostate Spec Ag 16 % (calc) (>25); Prostate Specific Ag Total 7.7 ng/mL (< OR = 4.0)
== END 2024-02-04 11:26 | disposition home or self-care (01) ==
LOC: HO.LNP 11:25
PROVIDERS: Visit Provider Internal Medicine
DX: E78.00 Pure hypercholesterolemia, unspecified (principal); N40.0 Benign prostatic hyperplasia without lower urinary tract symptoms; D72.819 Decreased white blood cell count, unspecified; Z12.5 Encounter for screening for malignant neoplasm of prostate
CPT/HCPCS: 80053; 80061; 81001; 84153; 84154; 85025

== ENCOUNTER 2024-03-13 09:42 | Outpatient (AMB) | payer BC, MEDICARE, SELFPAY ==
--- NOTE | 2024-03-13 09:45 | MHC.OFFVIS ---
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 Patient reports pain, numbness and tingling in between the 4th and 5th MCP joint of the left hand that radiates into the palm aspect. Noticed this happens when he is playing golf, says he has trouble holding golf club. he took a break from golf in January and hasn't played since due to his symptoms. they have resolved since then however would like to know what is going on before he returns to playing denies past injury and past medical treatment. 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 Patient states that at that time, he stopped playing golf for the year, and has noticed significant relief since then. Patient reports no pain at this time. Patient reports that he had 1 incident of numbness and tingling in the left hand, But this resolved without issue and has not recurred since. Patient inquires if a course of OT will be helpful for him. No other acute complaints or concerns at this time. 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 Neuro: Normal sensation of the tips of all digits of the left hand at this time Vascular: Cap refill brisk Pain: No tenderness to palpation anywhere on the left ring or small fingers No pain with range of motion testing ROM: Patient is able to make a closed fist and extend all digits of the left hand fully and without difficulty Skin: No lacerations or abrasions. General: No ecchymosis, erythema, or evidence of infection. Psych: Appears grossly normal Affect normal Attitude cooperative Assessment & Plan Assessment & Plan (1) Stiffness of finger joint of left hand: Code(s): M25.642 - Stiffness of left hand, not elsewhere classified Category: Medical Plan 1. Stiffness and acute pain of ring and small fingers of left hand Symptoms resolved Patient is educated about this condition Patient is educated about the typical recovery course At this time, patient was referred to occupational therapy for range of motion and strengthening of the left hand Patient is advised that he can return to normal activity as tolerated Patient was amenable to this plan Patient will follow-up as needed with any acute concerns Orders: Orders OT Evaluation and Treatment Today M25.642 - Stiffness of left hand, not elsewhere classified Coding Level of Care Code New Pt Level 3 (07817) Diagnoses Stiffness of finger joint of left hand M25.642
--- OUTSIDE RECORDS SUMMARY | 2024-03-15 14:03 | XMS_ITS ---
Author Organization Brenden Sapp MD Address [address] [place], [place] [id number] Care Team Providers Care Workers Compensation Analyst Name Role Phone Brenden Sapp Primary Care Provider [phone] RESULTS Component Value Reference Range Notes Complete Blood Count Auto Di ff Reviewed date:02/04/2024 12:45:51 PM Interpretation: Performing Lab:[facility], [address] [place] [phone] Notes/Report: White Blood Count 5.2 4.8-10.8 X10*3/uL [...] NRBC Abs Auto 0.000 0.0-0.012 X10*3/uL Comprehensive [place]. Panel Fa st Reviewed date:02/04/2024 05:07:43 PM Interpretation: Performing Lab:[facility], [address] [place] [phone] Notes/Report: Sodium 141 135-145 mmol/L Potassium 3.8 3.3-5.1 mmol/L Chloride 108 96-108 mmol/L Carbon Dioxide 26 22-29 mmol/L Anion Gap 11 12-20 Blood Urea Nitrogen 16 9-16 mg/dL Creatinine 0.83 0.5-1.4 mg/dL Estimated Glomerular Filt Rate > 60 NOTE: For -Guyanese individuals, multiply the result by 1.210. Chronic [...] Panel Reviewed date:02/04/2024 05:06:49 PM Interpretation: Performing Lab:[facility], [address] [place] [phone] Notes/Report: Triglycerides 107 <150 mg/dL Desirable Triglyceride: [...] Reviewed date:02/11/2024 01:45:51 PM Interpretation:IDALIA 02/10 Performing Lab:[address] [phone] Notes/Report: PSA,Total (Free>4and<10) 7.07 0.00-4.00 ng/mL PSA methodology: Neumann Alinity i Chemiluminescent Microparticle Immunoassay (CMIA) UA ClnCatch+Micro w/rflx Cul t Reviewed date:02/04/2024 12:47:13 PM Interpretation: Performing Lab:[address] [phone] Notes/Report: [id number] Urine, Clean Catch Color Urine Yellow Appearance Urine Cloudy PH 6.0 5.0-9.0 Glucose Urine UA Negative Negative mg/dL Urine Blood Negative Negative Specific [place] - Urine 1.025 1.005-1.025 Urine Protein Negative [...] Date Provider Diagnosis Brenden Sapp MD [address] [place], [place] [phone] 02/04/2024 Brenden Sapp Hypokalemia E87.6 ; Pure hypercholesterolemia E78.00 ; Prostatism N40.0 and Leukopenia, unspecified type D72.819 ASSESSMENTS Encounter Date Diagnosis Assessment Notes Treatment Notes Treatment Clinical Notes 02/04/2024 Hypokalemia (ICD-10 - E87.6) 02/04/2024 Pure hypercholestero lemia (ICD-10 - E78.00) 02/04/2024 Prostatism (ICD-10 - N40.0) 02/04/2024 Leukopenia, unspecif ied type (ICD-10 - D72.819) PLAN OF TREATMENT Next Appt Details Provider Name:Brenden Gallagher ier, 08/11/2024 08:00:00 AM, [address] [place] [address], [place] [address], [place], [place], [phone], Provider Name:Brenden barbar, 08/18/2024 10:45:00 AM, [address] [place] [address], [place] [address], [place], [phone], Provider Name:Brenden Gallagher ier, 02/09/2025 07:30:00 AM, [address] [place] [address], [place] [address], RYLIE Bhakta, [phone], Provider Name:Brenden Gallagher ier, 02/16/2025 01:00:00 PM, [address] [place] [address], [place] [address], RYLIE Bhakta, [phone],
--- OUTSIDE RECORDS SUMMARY | 2024-03-15 14:03 | XMS_ITS ---
Author Organization Brenden Sapp MD Address [address] [place] [address] [place] [phone] Care Team Providers Care Stripping Shovel Operator Name Role Phone Brenden Sapp Primary Care Provider REASON FOR VISIT Dr. Sapp and staff Encounters Encounter Location Date Provider Diagnosis Brenden Sapp MD [address] [place] [address] [place] [phone] 02/29/2024 Brenden Sapp PLAN OF TREATMENT Next Appt Details Provider Name:Brenden Gallagher ier, 08/11/2024 08:00:00 AM, [address] [place] [address], [address], [phone], Provider Name:Brenden olivo, 08/18/2024 10:45:00 AM, [address] [place] [address], [address], [phone], Provider Name:Brenden Gallagher ieantione, 02/09/2025 07:30:00 AM, [address] [place] [address], [phone], Provider Name:Brenden Gallagher ieantione, 02/16/2025 01:00:00 PM, [address] [place] [address], [phone],
--- OUTSIDE RECORDS SUMMARY | 2024-03-15 14:03 | XMS_ITS ---
Author Organization Brenden Sapp MD Address [address] [place], [place] [id number] Care Team Providers Care Arson And Bomb Investigator Name Role Phone Brenden Sapp Primary Care Provider ALLERGIES Allergen (clinical drug ingredient) Drug/Non Drug Allergy documented on EMR Reaction Allergy Type Onset Date Status IVP DYE (uncoded) rash Allergy Ac tive RESULTS Component Value Reference Range Notes Occult Blood, Stool, Guaiac Reviewed date:02/11/2024 01:36:41 PM Interpretation:Negative Performing Lab: Notes/Report: Negative Occult Blood, Stool, Guaiac Neg REASON FOR REFERRAL Reason CARPAL TUNNEL, LEFT WRIST Diagnosis 1 Carpal tunnel syndro me, left (G56.02) Referral Organization Brenden Sapp MD Referring Provider First Name Brenden Referring Provider Last Name Senait Referring Provider Speciality Internal M edicine Referred Provider Raysa Rojas Referred Provider Specialty Hand Surgery General Notes Sherrie Rogers 02/11/2024 01:42:27 PM EST > REFERRAL FAXED TO [facility] Sue MILTON Patti A 03/13/2024 12:52:40 PM EST > OFFICE NOTES RECD Referral Priority Routine Referral Appointment Date 03/14/2024 REASON FOR VISIT review labs, CBACK PSA FREE AND TOTAL MEDICATIONS Medication SIG (Take, Route, Frequency, Duration) Notes [...] HCl 20 MG TAKE 1 TABLET BY [facility] EVERY DAY IN THE MORNING FOR 90 DAYS Active Cialis 5 MG 1 tablet Orally for 30 day(s) 11/14/2014 Not-Taking MiraLax - as directed Orally N ot-Taking SOCIAL HISTORY Tobacco Use: Social History Observation Description Date Details (start date - stop date) Never Smoker NA - NA Sex Assigned At : Social History Observation Description Sex Assigned At Unknown Tobacco Use/Smoking Question Answer Notes Patient is [...] monthly (1 point) Points 2 Interpretation Negative PROBLEMS Problem Type ICD Code Onset Dates Problem Status W/U Status Risk SNOMED Code Notes Problem Carpal tunnel syndrome of left wrist (G56.02) Active confirmed 414980825807077 Problem Prostate cancer (C61) Active confirmed 968222089 Problem Carpal tunnel syndrome, left (G56.02) Active confirmed Carpal tunnel syndrome (94761763) VITAL SIGNS BMI 29.56 kg/m2 02/11/2024 Blood pressure systolic 122 mm Hg 02/11/20 24 Blood pressure diastolic 74 mm Hg 024 Height 71 in 02/11/2024 Weight 212 lbs 02/11/2024 weight is down 3 pounds [facility] 6-24 Encounters Encounter Location Date Provider Diagnosis Brenden Sapp MD [address] [place], [place] [phone] 02/11/2024 Brenden Sapp Carpal tunnel syndro me of left wrist G56.02 ; Prostate cancer C61 ; Anxiety F41.9 ; Pure hypercholesterolemia E78.00 ; Colon cancer screening Z12.11 and Depression screening Z13.31 ASSESSMENTS Encounter Date Diagnosis Assessment Notes Treatment Notes Treatment Clinical Notes 02/11/2024 Carpal tunnel syndro me of left wrist (ICD-10 - G56.02) referral to hand surgeon at [facility]/REFERRAL MADE TO DR ROJAS, THEY WILL CONTACT PATIENT 02/11/2024 Prostate cancer (ICD -10 - C61) need notes from dr taylor/ REQUEST MADE TO UROLOGY MED RECORDS 02/11/2024 Anxiety (ICD-10 - F41.9) sta ble, will contonue current regiment doing well on paroxitne 02/11/2024 Pure hypercholestero lemia (ICD-10 - E78.00) stable, will continue current regiment 02/11/2024 Colon cancer screeni ng (ICD-10 - Z12.11) guaiac negative 02/11/2024 Depression screening (ICD-10 - Z13.31) negative screen PLAN OF TREATMENT Medication Medication Name Sig Start Date Stop Date Notes Atorvastatin Calcium 40 MG take 1 tablet by mouth every day Orally Once a day PARoxetine HCl 20 MG TAKE 1 TABLET BY [facility] EVERY DAY IN THE MORNING FOR 90 DAYS Treatment Notes Assessment Notes Carpal tunnel syndrome of left wrist ref erral to hand surgeon at [facility]/REFERRAL MADE TO DR ROJAS, THEY WILL CONTACT PATIENT Prostate cancer need notes from dr abdirahman mcclelland/ REQUEST MADE TO UROLOGY MED RECORDS Anxiety stable, will contonu e current regiment Pure hypercholesterolemia stable, will c ontinue current regiment Colon cancer screening guaiac negative Depression screening negative screen Referrals Referral Date Details 03/14/2024 03/14/2024, CARPAL T UNNEL, LEFT WRIST, Raysa Bob Next Appt Details Provider Name:Brenden olivo, 08/11/2024 08:00:00 AM, [address] [place] [address], [address], [phone], Provider Name:Brenden olivo, 08/18/2024 10:45:00 AM, [address] [place] [address], [address], [phone], Provider Name:Brenden olivo, 02/09/2025 07:30:00 AM, [address] [place] [address], [address], [phone], Provider Name:Brenden olivo, 02/16/2025 01:00:00 PM, [address] [place] [address], [address] [place], [phone], Progress Notes * Examination Category Sub-Category Detail Notes General Examination GENERAL APPEARANCE: well dev eloped, well nourished, in no acute distress HEAD: normocephalic, atrau matic EYES: pupils equal, round, reactive to light and accommodation, sclera non- icteric EARS: normal THROAT: clear NECK/THYROID: neck supple, [...] stool guaiac negative ORAL CAVITY: mucosa moist History and Physical Notes * HPI (History of Present Illness) Category Sub-Category Detail Notes Depression Screening PHQ-9 Little inte rest or pleasure in doing things: Not at all Feeling down, depressed, or hopeless: No t [...] Total Score: 0 Interpretation and Intervention Depression Scree maria dolores Findings: Negative Follow-Up for Depression: : review [...] Have you had any falls with injury in the past year?: No Have you had two or more falls in the year?: No Communication Needs Communication Needs Does the patient have a hearing impairment: No Does the patient have a vision impairmen t?: Yes ?If yes, what is the vision impairment?: Glasses Does the patient have a cognition impair ment?: No Consultation Request Notes Referral Date Referring Provider Referred Provider Not es 02/11/2024 Brenden Sapp Allison CARPAL TUNNEL, LEFT WRIST
--- OUTSIDE RECORDS SUMMARY | 2024-03-15 14:04 | XMS_ITS | Patient Health Record ---
Author Organization [facility] Address [address] [place] [phone] Care Team Providers Care Astronaut Mission Specialist Name Role Phone Brenden Sapp MD Primary Care Provider Bartolome Pink Jr [phone] ALLERGIES Allergen (clinical drug ingredient) Drug/Non Drug Allergy documented on EMR Reaction Allergy Type Onset Date Status IVP dye (uncoded) Unknown Allergy Ac tive REASON FOR REFERRAL No Information MEDICATIONS Medication SIG (Take, Route, Frequency, Duration) Notes Start Date End Date Status Atorvastatin Calcium 40 MG 1 tablet Oral ly Once a day Active Flomax 0.4 MG 1 capsule Orally Onc e a day Active MiraLax (colon prep) 17 GM/SCOOP mixed with Gatorade or Crystal Light Orally begin at 5:00 p.m. the day before the procedure for 1 day 2022 Active PARoxetine HCl 20mg Active SOCIAL HISTORY Sex Assigned At : Social History Observation Description Sex Assigned At Unknown PROBLEMS Problem Type ICD Code Onset Dates Problem Status W/U Status Risk SNOMED Code Notes Problem Colon cancer screening (Z12.11) Active confirmed 113618510 Problem Irritable bowel syndrome with constipation (K58.9) Active confirmed 184922421 Problem Irritable bowel syndrome with constipation (K58.1) Active confirmed 234655436 PLAN OF TREATMENT Future Test Test Name Order Date COLONOSCOPY 06/23/2012 COLONOSCOPY 12/09/2017 COLONOSCOPY 2022 Insurance Providers Payer Name Payer Address Payer Phone Subscriber Number Group Number Insured Name Patient Relationship to Insured Coverage Start Date Coverage End Date MEDICARE OF [place] [address] [place] [address] [id number] DOMENICA ALEJANDRO Self - patient is the insured [facility] [address] [place], [place] [id number] DOMENICA ALEJANDRO Self - patient is the insured MEDICAL (GENERAL) HISTORY Medical History History ICD Code Colonoscopy 02/04/18, sessile serrated po lyp, five-year followup Elevated PSA/BPH kidney cancer 12/2010 kidney stones Hyperlipidemia Hypertension Surgical History Surgery Date(Month/Year) surgery for kidney cancer Adenoidectomy kidney stones cyst removed from back 2017 Right inguinal hernia repair 2021
--- OUTSIDE RECORDS SUMMARY | 2024-03-15 14:04 | XMS_ITS ---
Author Organization [facility] Address [address] [place] [phone] Care Team Providers Care Environmental Services Technician Name Role Phone Brenden Sapp MD Primary Care Provider Ángel Landeros Jr, Bartolome Ortiz REASON FOR VISIT Please lock 2022 office note Encounters Encounter Location Date Provider Diagnosis [facility] [address] [place] [phone] 11/03/2022 Bartolome Landeros Jr PLAN OF TREATMENT No Information
--- OUTSIDE RECORDS SUMMARY | 2024-03-15 14:04 | XMS_ITS ---
Author Organization [facility] Address [address] [place] [phone] Care Team Providers Care Flower Pot Press Operator Name Role Phone Brenden Sapp MD Primary Care Provider Ángel Landeros Jr, Bartolome Ortiz REASON FOR VISIT pathology Encounters Encounter Location Date Provider Diagnosis [facility] [address] [place] [phone] 11/25/2022 Bartolome Landeros Jr PLAN OF TREATMENT No Information
--- OUTSIDE RECORDS SUMMARY | 2024-03-15 14:04 | XMS_ITS ---
Author Organization [facility] Address [address] [place] [phone] Care Team Providers Care Gas Tender Name Role Phone Senait ALANIZ, Brenden Primary Care Provider UnavaBartolome Davenport Jr REASON FOR VISIT screening Encounters Encounter Location Date Provider Diagnosis [facility] [address] [place] [phone] 11/06/2022 Bartolome Landeros Jr Encounter for screening colonoscopy Z12.11 and Colon polyps K63.5 ASSESSMENTS Encounter Date Diagnosis Assessment Notes Treatment Notes Treatment Clinical Notes 11/06/2022 Encounter for screening colonoscopy (ICD-10 - Z12.11) 11/06/2022 Colon polyps (ICD-10 - K63.5) PLAN OF TREATMENT No Information
--- OUTSIDE RECORDS SUMMARY | 2024-03-15 14:04 | XMS_ITS | Patient Health Record ---
Author Organization Brenden Sapp MD Address [address] [place], [place] [id number] Care Team Providers Care Group Home Manager Name Role Phone Brenden Sapp Primary Care Provider ALLERGIES Allergen (clinical drug ingredient) Drug/Non Drug Allergy documented on EMR Reaction Allergy Type Onset Date Status IVP DYE (uncoded) rash Allergy Ac tive RESULTS Component Value Reference Range Notes Kelsie Horn Reviewed date:07/30/2023 12:30:57 PM Interpretation: Performing Lab:[facility], [address] [place] [phone] Notes/Report: Kelsie Horn See Note Specimen held untested for 24 hours; Call to request Chemistry testing. Liver Panel Reviewed date:07/30/2023 07:35:26 PM Interpretation: Performing Lab:[facility], [address] [place] [phone] Notes/Report: Bilirubin Total 0.7 0.0-1.0 mg/dL Bilirubin Direct 0.3 0.0-0.5 mg/dL Aspartate Amino Transferase 18 5-37 U/L Alanine Aminotransferase 20 0-40 U/L Total Protein 7.0 6.5-8.0 g/dL Albumin Level 4.0 3.5-5.0 g/dL Alkaline Phosphatase 91 39-117 U/L Lipid Panel with Reflex Reviewed date:07/30/2023 07:36:14 PM Interpretation: Performing Lab:[facility], [address] [place] [phone] Notes/Report: Triglycerides 86 <150 mg/dL Desirable Triglyceride: less than 150 mg/dL Borderline High Triglyceride 150-199 mg/dL High Triglyceride: 200-499 mg/dL Very High Triglyceride: greater than or equal to 5OO mg/dL Cholesterol 150 <200 mg/dL Desirable Cholesterol: less than 200 mg/dL Borderline High Cholesterol: 200-239 mg/dL High Cholesterol: greater than 239 mg/dL LDL Cholesterol Calculated 89 <100 mg/dL Desirable LDL: less than 100 mg/dL Near Optimal/Above Optimal LDL: 110-129 mg/dL Borderline High LDL: 130-159 mg/dL High LDL: 160-189 mg/dL Very High LDL: greater than or equal to 190 mg/dL HDL Cholesterol 44 >40 mg/dL Desirable HDL: greater than 40 mg/dL Note: This HDL assay may give artificially low results in patients with liver disease. Complete Blood Count Auto Di ff Reviewed date:02/04/2024 12:45:51 PM Interpretation: Performing Lab:[facility], [address] [place] [phone] Notes/Report: White Blood Count 5.2 4.8-10.8 X10*3/uL [...] NRBC Abs Auto 0.000 0.0-0.012 X10*3/uL Comprehensive [place]. Panel Fa st Reviewed date:02/04/2024 05:07:43 PM Interpretation: Performing Lab:[facility], [address] [place] [phone] Notes/Report: Sodium 141 135-145 mmol/L Potassium 3.8 3.3-5.1 mmol/L Chloride 108 96-108 mmol/L Carbon Dioxide 26 22-29 mmol/L Anion Gap 11 12-20 Blood Urea Nitrogen 16 9-16 mg/dL Creatinine 0.83 0.5-1.4 mg/dL Estimated Glomerular Filt Rate > 60 NOTE: For -[place] Citizen individuals, multiply the result by 1.210. Chronic [...] Panel Reviewed date:02/04/2024 05:06:49 PM Interpretation: Performing Lab:[facility], [address] [place] [phone] Notes/Report: Triglycerides 107 <150 mg/dL Desirable Triglyceride: [...] Reviewed date:02/11/2024 01:45:51 PM Interpretation:IDALIA 02/10 Performing Lab:[address] [phone] Notes/Report: PSA,Total (Free>4and<10) 7.07 0.00-4.00 ng/mL PSA methodology: Neumann Alinity i Chemiluminescent Microparticle Immunoassay (CMIA) UA ClnCatch+Micro w/rflx Cul t Reviewed date:02/04/2024 12:47:13 PM Interpretation: Performing Lab:[address] [phone] Notes/Report: [id number] Urine, Clean Catch Color Urine Yellow Appearance Urine Cloudy PH 6.0 5.0-9.0 Glucose Urine UA Negative Negative mg/dL Urine Blood Negative Negative Specific [place] - Urine 1.025 1.005-1.025 Urine Protein Negative Neg-Trace mg/dL Urine Ketones Negative Negative mg/dL Nitrite Urine Negative Negative Leukocyte Esterase Urine Negative Negative RBC Urine 0-2 0-2 /HPF WBC Urine 0-5 0-5 /HPF Squamous Epithelial Cell Urine 0-2 0-2 /HPF Bacteria Urine None Seen None Seen Hyaline Casts Urine 0-2 0-2 /LPF PSA Free and Total Reviewed date:02/11/2024 01:45:58 PM Interpretation:IDALIA 02/10 Performing Lab:[address] [phone] Notes/Report: Prostate Specific Ag Total 7.7 < OR = 4.0 ng/ mL Percent Free Prostate Spec Ag 16 >25 % (calc ) PSA(ng/mL) Free PSA(%) Estimated(x) Probability of Cancer(as%) 0-2.5 (*) Approx. 1 2.6-4.0(1) 0-27(2) 24(3) 4.1-10(4) 0-10 56 11-15 28 16-20 20 21-25 16 >or =26 8 >10(+) N/A >50 References:(1)J Carlos et al.:Urology 60: 469-474 (2001) (2)J Carlos et al.:J.Urol 168: 922-925 (2001) Free PSA(%) Sensitivity(%) Specificity(%) < or = 25 85 19 < or = 30 93 9 (3)Catalona et al.:GARY 277: 2197-5852 (1996) (4)Catalona et al.:GARY 279: 5999-1451 (1997) (x)These estimates vary with age, ethnicity, family history and ALVA results. (*)The diagnostic usefulness of % Free PSA has not been established in patients with total PSA below 2.6 ng/mL (+)In men with PSA above 10 ng/mL, prostate cancer risk is determined by total PSA alone. The Total PSA value from this assay system is standardized against the equimolar PSA standard. The test result will be approximately 20% higher when compared to the WHO-standardized Total PSA (Siemens assay). Comparison of serial PSA results should be interpreted with this fact in mind. PSA was performed using the Adilson Simba Immunoassay method. Values obtained from different assay methods cannot be used interchangeably. PSA levels, regardless of value, should not be interpreted as absolute evidence of the presence or absence of disease. THIS TEST WAS PERFORMED AT: [facility] [address] [address] JOCELYNE PRICE MD Free Prostate Spec Ag 1.2 Occult Blood, Stool, Guaiac Reviewed date:02/11/2024 01:36:41 PM Interpretation:Negative Performing Lab: Notes/Report: Negative Occult Blood, Stool, Guaiac Neg REASON FOR REFERRAL Reason right groin pain Diagnosis 1 Right groin pain (R1 0.31) Referral Organization Brenden Sapp MD Referring Provider First Name Brenden Referring Provider Last Name Senait Referring Provider Speciality Internal M edicine Referred Provider Bk Bobo Referred Provider Specialty Surgery General Notes Shanel Dumont 09:35:06 AM EST > patient is aware of appt Referral Priority Routine Referral Appointment Date 05/14/2023 Reason CARPAL TUNNEL, LEFT WRIST Diagnosis 1 Carpal tunnel syndro me, left (G56.02) Referral Organization Brenden Sapp MD Referring Provider First Name Brenden Referring Provider Last Name Senait Referring Provider Speciality Internal M edicine Referred Provider Raysa Garcia Referred Provider Specialty Hand Surgery General Notes hSerrie Rogers 02/11/2024 01:42:27 PM EST > REFERRAL [facility]XED TO [facility] Sue MILTON Patti A 03/13/2024 12:52:40 PM EST > OFFICE NOTES RECD Referral Priority Routine Referral Appointment Date 03/14/2024 MEDICATIONS Medication SIG (Take, Route, Frequency, Duration) Notes Start Date End Date Status MiraLax - as directed Orally N ot-Taking Nitroglycerin 2 % as directed 1/4 inch Transdermal Once a day as needed with pain for 30 days 03/19/2016 Not-Taking LORazepam 1 MG 1 tablet at bedtime as needed Orally Once a day 02/11/2016 Not-Taking Atorvastatin Calcium 40 MG take 1 tablet by mouth every day Orally Once a day Active PARoxetine HCl 20 MG TAKE 1 TABLET BY MO UT EVERY DAY IN THE MORNING FOR 90 DAYS for 90 Active Cialis 5 MG 1 tablet Orally for 30 day(s) 11/14/2014 Not-Taking IMMUNIZATIONS Vaccine Route Administration Date Status Comme nts Flu Vaccine Unknown 01/06/2012 Administered given at wo rk Flu Vaccine Unknown 12/21/2012 Administered Had flu claudette t at work Flu Vaccine Unknown 12/12/2013 Administered Work thru V NA Flu Vaccine Unknown 12/19/2014 Administered At work PPSV23 (Pnemovax) IM Intramuscular 11/18/2015 Administered Fluarix Quadrivalent IM Intramuscular 12/31/2015 Administe red Shingles IM Intramuscular 05/28/2016 Administered Fluarix Quadrivalent IM Intramuscular 12/15/2016 Administe red Prevnar 13 IM Intramuscular 06/21/2017 Administered Fluarix Quadrivalent IM Intramuscular 12/21/2017 Administe red Fluarix Quadrivalent IM Intramuscular 12/27/2018 Administe red Influenza High Dose Unknown 01/02/2020 Administered [facility] TDaP Unknown 01/08/2020 Administered had at [facility] SARS-COV-2 Pfizer Unknown 06/10/2020 Administered SARS-COV-2 Pfizer Unknown 07/01/2020 Administered Influenza High Dose IM Intramuscular 01/09/2021 Administer ed SARS-COV-2 Pfizer Unknown 01/30/2021 Administered PPSV23 (Pnemovax) IM Intramuscular 04/17/2021 Administered Influenza High Dose IM Intramuscular 01/09/2022 Administer ed Influenza High Dose Unknown 01/01/2023 Administered SARS-COV-2 Moderna 2022 Unknown 04/18/2023 Administered [facility] Influenza High Dose Unknown 01/11/2024 Administered SOCIAL HISTORY Tobacco Use: Social History Observation [...] W/U Status Risk SNOMED Code Notes Problem Hypokalemia (E87.6) Active confirmed 43 808346 Problem Prostatism (N40.0) Active confirmed 114 61758 Problem Anxiety (F41.9) Active confirmed 152730 02 Problem Diverticulitis (K57.92) Active confirmed 127895896 Problem Slow transit constipation (K59.01) Active confirmed 93053410 Problem Prostate cancer (C61) Active confirmed 744660043 Problem Cervical disc diseas e (M50.90) Active confirmed 408303289 Problem History of diverticulitis (Z87.19) Active confirmed 797050956121789 Problem Carpal tunnel syndro me of left wrist (G56.02) Active confirmed 3502940179619 02 Problem Leukopenia, unspecified type (D72.819) Active confirmed Leukopenia (65682893) Problem Moderate episode of recurrent major depressive disorder (F33.1) Active confirmed 755456515 Problem 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) Active confirmed 96095240 Problem Pure hypercholesterolemia (E78.00) Active confirmed 503565694 Problem Serrated polyp of colon (K63.5) Active confirmed 855559252 Problem Carpal tunnel syndrome, left (G56.02) Active confirmed Carpal tunnel syndrome (30407853) VITAL SIGNS Blood pressure diastolic 74 mm Hg 02/11/2024 paulo ght is down 3 pounds since 08-09-23 Height 71 in 02/11/2024 weight is down 3 pounds since 08-09-23 Blood pressure systolic 122 mm Hg 02/11/2024 weig ht is down 3 pounds since 08-09-23 Weight 212 lbs 02/11/2024 weight is down 3 pounds since 08-09-23 BMI 29.56 kg/m2 02/11/2024 weight is down 3 pounds since 08-09-23 Encounters Encounter Location Date Provider Diagnosis Brenden Sapp MD [address] [place] [id number] 02/11/2024 Brenden Sapp Carpal tunnel syndro me of left wrist G56.02 ; Prostate cancer C61 ; Anxiety F41.9 ; Pure hypercholesterolemia E78.00 ; Colon cancer screening Z12.11 and Depression screening Z13.31 Brenden Sapp MD [address] [place] [id number] 07/30/2023 Brenden Sapp Pure hypercholestero lemia E78.00 Brenden Sapp MD [address] [place] [id number] 02/04/2024 Brenden Sapp Hypokalemia E87.6 ; Pure hypercholesterolemia E78.00 ; Prostatism N40.0 and Leukopenia, unspecified type D72.819 Brenden Sapp MD [address] [place] [id number] 08/09/2023 Brenden Sapp Pure hypercholestero lemia E78.00 ; Prostatism N40.0 ; Sebaceous cyst L72.3 and Acute diarrhea R19.7 Brenden Sapp MD [address] [place] [id number] 05/07/2023 Brenden Sapp Right groin pain R10 .31 Brenden Sapp MD [address] [place] [id number] 05/31/2023 Brenden Sapp Right groin pain R10 .31 and Elevated PSA R97.20 Brenden Sapp MD [address] [place] [id number] 08/31/2023 Brenden Sapp MD [address] [place] [id number] 02/29/2024 Brenden Sapp ASSESSMENTS Encounter Date Diagnosis Assessment Notes Treatment Notes Treatment Clinical Notes 02/11/2024 Prostate cancer (ICD -10 - C61) need notes from dr damon/ REQUEST MADE TO UROLOGY MED RECORDS 02/11/2024 Carpal tunnel syndro me of left wrist (ICD-10 - G56.02) referral to hand surgeon at [facility]/REFERRAL MADE TO DR GARCIA, THEY WILL CONTACT PATIENT 07/30/2023 Pure hypercholestero lemia (ICD-10 - E78.00) 02/04/2024 Hypokalemia (ICD-10 - E87.6) 02/04/2024 Pure hypercholestero lemia (ICD-10 - E78.00) 08/09/2023 Prostatism (ICD-10 - N40.0) seeing urology 08/09/2023 Pure hypercholestero lemia (ICD-10 - E78.00) observe, will continue current regiment 05/07/2023 Right groin pain (IC D-10 - R10.31) referral to dr bobo 05/31/2023 Elevated PSA (ICD-10 - R97.20) make appt with dr damon for elevated psa/ referral in system, already has an appt with Dr. Damon in September 2023 patient said he would call to try and get in sooner for his elevated PSA 05/31/2023 Right groin pain (IC D-10 - R10.31) was evaluated by dr davila and no hernia thinks it was scar tissue 02/11/2024 Anxiety (ICD-10 - F41.9) sta ble, will contonue current regiment doing well on paroxitne 02/04/2024 Prostatism (ICD-10 - N40.0) 08/09/2023 Sebaceous cyst (ICD- 10 - L72.3) 02/11/2024 Pure hypercholestero lemia (ICD-10 - E78.00) stable, will continue current regiment 02/04/2024 Leukopenia, unspecif ied type (ICD-10 - D72.819) 08/09/2023 Acute diarrhea (ICD- 10 - R19.7) if it doesn't get better to let me know and will do stool for c dificil 02/11/2024 Colon cancer screeni ng (ICD-10 - Z12.11) guaiac negative 02/11/2024 Depression screening (ICD-10 - Z13.31) negative screen PLAN OF TREATMENT Pending Test Test Name Order Date PSA, TOTAL 01/03/2019 Next Appt Details Provider Name:Brendenlen Gallagher ier, 08/11/2024 08:00:00 AM, [address] [place] [address], [address], [phone], Provider Name:Brenden Gallagher ier, 08/18/2024 10:45:00 AM, [address] [place] [address], [address], [phone], Provider Name:Brenden Gallagher ier, 02/09/2025 07:30:00 AM, [address] [place] [address], [address], [phone], Provider Name:Brendenlen Gallagher ier, 02/16/2025 01:00:00 PM, [address] [place] [address], [phone], Insurance Providers Payer Name Payer Address Payer Phone Subscriber Number Group Number Insured Name Patient Relationship to Insured Coverage Start Date Coverage End Date MEDICARE NHIC [address] [place] [address] [id number] Robert Valderrama Self - patient is the insured [employer] [facility] [address] [place], [place] [id number] JannieNoeler Self - patient is the insured MEDICAL (GENERAL) HISTORY Medical History History ICD Code colonoscopy 07/01/2012 - repe at in 5 years w/Dr. Landeros; colonoscopy 02/04/18 - Dr. Tigre due for recall in 02/2023.11/06/22 Colonoscopy pending path
== END 2024-03-13 10:02 | disposition home or self-care (01) ==
PROVIDERS: PCP Internal Medicine
DX: M25.642 Stiffness of left hand, not elsewhere classified (principal)
CPT/HCPCS: 99203

== ENCOUNTER 2024-08-11 09:47 | Outpatient (REF) | payer MEDICARE, BC, SELFPAY ==
--- OUTSIDE RECORDS SUMMARY | 2024-08-11 10:10 | XMS_ITS ---
Author Organization Brenden Sapp MD Address [address] [place] [phone] Care Team Providers Care Cow Puncher Name Role Phone Brenden Sapp Primary Care Provider [phone] REASON FOR VISIT FASTING LIPIDS Encounters Encounter Location Date Provider Diagnosis Brenden Sapp MD [address] [place] [address] [place] [phone] 08/11/2024 Brenden Sapp Pure hypercholestero lemia E78.00 Assessments Encounter Date Diagnosis (ICD Code) Assessment Notes Treatment Notes Treatment Clinical Notes Section Notes 08/11/2024 Pure hypercholesterolemia (ICD-10 - E78.00) Plan Of Treatment Pending Test Test Name Order Date Liver Panel 08/11/2024 Lipid Panel with Reflex 08/11/2024 Next Appt Details Provider Name:Brenden olivo, 08/18/2024 10:45:00 AM, [address] [place] [address], [phone], Provider Name:Brenden olivo, 02/09/2025 07:30:00 AM, [address] [place] [address], [address], [phone], Provider Name:Brenden olivo, 02/16/2025 01:00:00 PM, [address] [place] [address], [phone], Progress Notes * Robert ALEJANDRO CDOB:1950 (73 yo M)Acc No.[id number]:08/11/2024 Progress Note Patient:?Robert ALEJANDRO Provider:?Brenden Sapp MD :1950???Age:73 Y???Sex:Male Jb e:08/11/2024 Address: [place], [id number] Subjective: * Chief Complaints: * ???1. FASTING LIPIDS. * Medical History:? Objective: * Vitals:? Assessment: * Assessment: 1.?Pure hypercholesterolemia - E78.00 (Primary)??? Plan: * Treatment: * Procedure Codes:?78043 VENIP UNCT, ROUTINE* * * The named appointment provid er may or may not be the originator of this progress note, and it is not deemed complete until electronically signed by the appointment provider. Sign off status: Pending * Provider:?Brenden Sapp MD Date:?0 08/11/2024 Generated for Los virk/Vania/Jaclynitting on:?08/11/2024 10:10 AM EDT
--- OUTSIDE RECORDS SUMMARY | 2024-08-11 10:10 | XMS_ITS ---
Author Organization Brenden Sapp MD Address [address] [place], [place] [phone] Care Team Providers Care Fiberglass Finisher Name Role Phone Brenden Sapp Primary Care [...] 20 MG TAKE 1 TABLET BY [place] [facility] EVERY DAY IN THE MORNING FOR 90 DAYS for 90 Active LORazepam 1 MG 1 tablet at bedtime as needed Orally Once a day 02/11/2016 Not-Taking MiraLax - as directed Orally N ot-Taking Atorvastatin Calcium 40 MG take 1 tablet by mouth every day Orally Once a day Active Encounters Encounter Location Date Provider Diagnosis Brenden Sapp MD [address] [place], [place] [phone] 05/25/2024 Brenden Sapp Plan Of Treatment Next Appt Details Provider Name:Brenden olivo, 08/18/2024 10:45:00 AM, [address] [facility], [address], [place], [place], [phone], Provider Name:Brenden olivo, 02/09/2025 07:30:00 AM, [address], [address], [place], [place], [phone], Provider Name:Brenden Gallagher ier, 02/16/2025 01:00:00 PM, [address] [facility], [address], [place], [place], [phone], Progress Notes * JAVONNoel Borjaer CDOB:1950 (73 yo M)Acc No.[id number]:05/25/2024 Patient:?JAVON Robert C Provider:?Brenden Sapp MD :1950???Age:73 Y???Sex:Male Jb e:05/25/2024 Address:[address] [place] [address] [facility] [id number] Subjective: * Chief Complaints: * ???1. Patient did not do a T [facility], tried to cancel. * HPI: ???Symptom(s):?Telehealth?Total time spend talking with patient (minutes)?0.? * ROS:?General/Constitutional:?Denies?Headache.?ENT:?Admits?Sore throat.? * Medical History:?colonoscopy 07/01/2012 - repeat in 5 years w/Dr. Landeros; colonoscopy 02/04/18 - Dr. Landeros due for recall in 02/2023.11/06/22 Colonoscopy pending path. * Medications:?Taking Atorvast atin Calcium 40 MG Tablet take 1 tablet [...] 5 MG Tablet 1 tablet Orally * Allergies:?IVP DYE: rash. Objective: * Vitals:?Wt-k.26. Assessment: Plan: * Treatment: * * The named appointment provid er may or may not be the originator of this progress note, and it is not deemed complete until electronically signed by the appointment provider. Sign off status: Pending * Provider:?Brenden Sapp MD Date:?0 05/25/2024 Generated for Los virk/Vania/Jaclynitting on:?08/11/2024 10:10 AM EDT History and Physical Notes * HPI (History of Present Illness) Category Sub-Category Detail Notes Category Not es Symptom(s) Telehealth Total time spend talking with patient (minutes): 0
--- OUTSIDE RECORDS SUMMARY | 2024-08-11 10:10 | XMS_ITS ---
Author Organization Brenden Sapp MD Address [address] [facility] [address] [place] [phone] Care Team Providers Care Rough And Trueing Machine Operator Name Role Phone Brenden Sapp Primary Care Provider REASON FOR VISIT Dr. Sapp and staff Encounters Encounter Location Date Provider Diagnosis Brenden Sapp MD [address] [place] [address] [place] [phone] 02/29/2024 Brenden Sapp Plan Of Treatment Next Appt Details Provider Name:Brenden Gallagher ier, 08/18/2024 10:45:00 AM, [address] [place] [address], [address], [phone], Provider Name:Brenden Gallagher ier, 02/09/2025 07:30:00 AM, [address] [place] [address], [address], [phone], Provider Name:Brenden Gallagher ier, 02/16/2025 01:00:00 PM, [address] [place] [address], [address], [phone], Progress Notes * Robert ALEJANDRO CDOB:1950 (73 yo M)Acc No.[id number]:02/29/2024 Patient:?Robert Alejandro :1950???Age:73 Y???Sex:Male Address:[address] [place] * true * Date:? Generated for Los virk/Vania/Jaclynitting on:?08/11/2024 10:10 AM EDT
--- OUTSIDE RECORDS SUMMARY | 2024-08-11 10:10 | XMS_ITS | Patient Health Record ---
Author Organization Brenden Sapp MD Address [address] [place], [place] [phone] Care Team Providers Care Distribution Sales Manager Name Role Phone Brenden Sapp Primary Care Provider Allergies Allergen (clinical drug ingredient) Drug/Non Drug Allergy documented on EMR Reaction Allergy Type Onset Date Status IVP DYE (uncoded) rash Allergy Ac tive Results Component Value Reference Range Notes Complete Blood Count Auto Di ff Reviewed date:02/04/2024 12:45:51 PM Interpretation: Performing Lab:[facility], [address] [place] [phone] Notes/Report: White Blood Count 5.2 4.8-10.8 X10*3/uL [...] NRBC Abs Auto 0.000 0.0-0.012 X10*3/uL Comprehensive [place]. Panel Fa st Reviewed date:02/04/2024 05:07:43 PM Interpretation: Performing Lab:[facility], [address] [place] [phone] Notes/Report: Sodium 141 135-145 mmol/L Potassium 3.8 3.3-5.1 mmol/L Chloride 108 96-108 mmol/L Carbon Dioxide 26 22-29 mmol/L Anion Gap 11 12-20 Blood Urea Nitrogen 16 9-16 mg/dL Creatinine 0.83 0.5-1.4 mg/dL Estimated Glomerular Filt Rate > 60 NOTE: For -[place] individuals, multiply the result by 1.210. Chronic [...] Panel Reviewed date:02/04/2024 05:06:49 PM Interpretation: Performing Lab:[facility], [address] [place] [phone] Notes/Report: Triglycerides 107 <150 mg/dL Desirable Triglyceride: [...] disease. PSA,Total (Free>4and<10) Reviewed date:02/11/2024 01:45:51 PM Interpretation:JAVICK 02/10 Performing Lab:[facility], [address] [place] [phone] Notes/Report: PSA,Total (Free>4and<10) 7.07 0.00-4.00 ng/mL PSA methodology: Neumann Alinity i Chemiluminescent Microparticle Immunoassay (CMIA) UA ClnCatch+Micro w/rflx Cul t Reviewed date:02/04/2024 12:47:13 PM Interpretation: Performing Lab:[facility], [address] [place] [phone] Notes/Report: [id number] 0800 Urine, Clean Catch Color Urine Yellow Appearance Urine Cloudy PH 6.0 5.0-9.0 Glucose Urine UA Negative Negative mg/dL Urine Blood Negative Negative Specific [place] - Urine 1.025 1.005-1.025 Urine Protein Negative Neg-Trace mg/dL Urine Ketones Negative Negative mg/dL Nitrite Urine Negative Negative Leukocyte Esterase Urine Negative Negative RBC Urine 0-2 0-2 /HPF WBC Urine 0-5 0-5 /HPF Squamous Epithelial Cell Urine 0-2 0-2 /HPF Bacteria Urine None Seen None Seen Hyaline Casts Urine 0-2 0-2 /LPF Occult Blood, Stool, Guaiac Reviewed date:02/11/2024 01:36:41 PM Interpretation:Negative Performing Lab: Notes/Report: Negative Occult Blood, Stool, Guaiac Neg PSA Free and Total Reviewed date:02/11/2024 01:45:58 PM Interpretation:IDALIA 02/10 Performing Lab:[address] [phone] Notes/Report: Prostate Specific Ag Total 7.7 < [...] 30 93 9 (3)Catalona et al.:GARY 277: [id number] (1996) (4)Catalona et al.:GARY 279: [id number] (1997) (x)These estimates vary with age, ethnicity, [...] mind. PSA was performed using the Adilson Llewellyn Immunoassay method. Values obtained from different assay methods cannot be used interchangeably. PSA levels, regardless of value, should not be interpreted as absolute evidence of the presence or absence of disease. THIS TEST WAS PERFORMED AT: [facility] [address] [place] [phone] JOCELYNE PRICE MD Free Prostate Spec Ag 1.2 Hold Gold (Not yet reviewed by provider) Interpretation: Performing Lab:[facility], [address] [place] [address] [place] [phone] Notes/Report: Hold Gold See Note Specimen held untested for 24 hours; Call to request Chemistry testing. Reason For Referral Reason CARPAL TUNNEL, LEFT WRIST Diagnosis 1 Carpal tunnel syndro me, left (G56.02) Referral Organization Brenden Sapp MD Referring Provider First Name Brenden Referring Provider Last Name Senait Referring Provider Speciality Internal M edicine Referred Provider Raysa Rojas Referred Provider Specialty Hand Surgery General Notes Sherrie Rogers 02/11/2024 01:42:27 PM EST > REFERRAL FAXED TO [facility] Patti A 03/13/2024 12:52:40 PM EST > OFFICE NOTES RECD Referral Priority Routine Referral Appointment Date 03/14/2024 Medications Medication SIG (Take, Route, Frequency, Duration) [...] MORNING FOR 90 DAYS for 90 Active Atorvastatin Calcium 40 MG take 1 tablet by mouth every day Orally Once a day Active LORazepam 1 MG 1 tablet at bedtime as needed Orally Once a day 02/11/2016 Not-Taking MiraLax - as directed Orally N ot-Taking Immunizations Vaccine Route Administration Date Status Comme nts [...] [facility] TDaP Unknown 01/08/2020 Administered had at [facility] SARS-COV-2 Pfizer Unknown 06/10/2020 Administered SARS-COV-2 Pfizer Unknown 07/01/2020 Administered Influenza High Dose IM Intramuscular 01/09/2021 Administer ed SARS-COV-2 Pfizer Unknown 01/30/2021 Administered PPSV23 (Pnemovax) IM Intramuscular 04/17/2021 Administered Influenza High Dose IM Intramuscular 01/09/2022 Administer ed Influenza High Dose Unknown 01/01/2023 Administered SARS-COV-2 Moderna 2022 Unknown 04/18/2023 Administered [facility] Influenza High Dose Unknown 01/11/2024 Administered Social History Tobacco Use: Social History Observation [...] Problem Status W/U Status Risk Notes Problem 62338579 Hypokalemia (E87.6) Active confirmed Problem 33502692 Prostatism (N40.0) Active confirmed Problem 53511941 Anxiety (F41.9) Active confirmed Problem 377783588 Diverticulitis (K57.92) Active confirmed Problem 20043343 Slow transit constipation (K59.01) Active confirmed Problem 444242519 Prostate cancer (C61) Active confirme d Problem 395543734 Cervical disc di sease (M50.90) Active confirmed Problem 875185523593826 History of diverticulitis (Z87.19) Active confirmed Problem 423936695981508 Carpal tunnel sy ndrome of left wrist (G56.02) Active confirmed Problem Leukopenia (34346123) Leukopenia, unspecified type (D72.819) Active confirmed Problem 346503504 Moderate episode of recurrent major depressive disorder (F33.1) Active confirmed Problem 85384082 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) Active confirmed Problem 269902350 Pure hypercholesterolemia (E78.00) Active confirmed Problem 839525997 Serrated polyp o f colon (K63.5) Active confirmed Problem Carpal tunnel syndrome (63235528) Carpal tunnel syndrome, left (G56.02) Active confirmed Vital Signs Blood pressure diastolic 74 mm Hg 02/11/2024 [...] Brenden Sapp MD [address] [place] [id number] 02/04/2024 Brenden Sapp Hypokalemia E87.6 ; Pure hypercholesterolemia E78.00 ; Prostatism N40.0 and Leukopenia, unspecified type D72.819 Brenden Sapp MD [address] [place] [id number] 05/25/2024 Brenden Sapp MD [address] [place] [id number] 08/11/2024 Brenden Sapp Pure hypercholestero lemia E78.00 Brenden Sapp MD [address] [place] [id number] 02/11/2024 Brenden Sapp Carpal tunnel syndro me of left wrist G56.02 ; Prostate cancer C61 ; Anxiety F41.9 ; Pure hypercholesterolemia E78.00 ; Colon cancer screening Z12.11 and Depression screening Z13.31 Brenden Sapp MD [address] [place] [id number] 08/31/2023 Brenden Sapp MD [address] [facility] [address] [place] [id number] 02/29/2024 Brenden Sapp Assessments Encounter Date Diagnosis (ICD Code) Assessment Notes Treatment Notes Treatment Clinical Notes Section Notes 02/04/2024 Hypokalemia (ICD-10 - E87.6) 02/04/2024 Pure hypercholesterolemia (ICD-10 - E78.00) 08/11/2024 Pure hypercholesterolemia (ICD-10 - E78.00) 02/11/2024 Carpal tunnel syndro me of left wrist (ICD-10 - G56.02) referral to hand surgeon at [facility]/REFERRAL MADE TO DR ROJAS, THEY WILL CONTACT PATIENT 02/11/2024 Prostate cancer (ICD -10 - C61) need notes from dr taylor/ REQUEST MADE TO UROLOGY MED RECORDS 02/04/2024 Prostatism (ICD-10 - N40.0) 02/11/2024 Anxiety (ICD-10 - F41.9) sta ble, will contonue current regiment doing well on paroxitne 02/04/2024 Leukopenia, unspecif ied type (ICD-10 - D72.819) 02/11/2024 Pure hypercholesterolemia (ICD-10 - E78.00) stable, will continue current regiment 02/11/2024 Colon cancer screeni ng (ICD-10 - Z12.11) guaiac negative 02/11/2024 Depression screening (ICD-10 - Z13.31) negative screen Plan Of Treatment Pending Test Test Name Order Date Liver Panel 08/11/2024 Lipid Panel with Reflex 08/11/2024 Hold Gold 08/11/2024 PSA, TOTAL 01/03/2019 Next Appt Details Provider Name:Brenden barbar, 08/18/2024 10:45:00 AM, [address] [place] [address], [address], [phone], Provider Name:Brenden Gallagher ier, 02/09/2025 07:30:00 AM, [address] [place] [address], [place] [address], [place], [place], [phone], Provider Name:Brenden Gallagher ier, 02/16/2025 01:00:00 PM, [address] [place] [address], [address], [phone], Insurance Providers Payer Name Payer Address Payer Phone Subscriber Number Group Number Insured Name Patient Relationship to Insured Coverage Start Date Coverage End Date MEDICARE NHIC [address] [place] [address] [id number] Robert Valderrama Self - patient is the insured [employer] [facility] [address] [place], [place] [id number] [phone] [id number] Robert Valderrama Self - patient is the insured Medical (General) History Medical History History ICD Code colonoscopy 07/01/2012 - repe at in 5 years w/Dr. Landeros; colonoscopy 02/04/18 - Dr. Landeros due for recall in 02/2023.11/06/22 Colonoscopy pending path
--- OUTSIDE RECORDS SUMMARY | 2024-08-11 10:11 | XMS_ITS | Patient Health Record ---
Author Organization [facility] Address [address] [place] [phone] Care Team Providers Care Oil Recovery Unit Operator Name Role Phone Brenden Sapp MD Primary Care Provider Bartolome Pink Jr [phone] Allergies Allergen (clinical drug ingredient) Drug/Non Drug Allergy documented on EMR Reaction Allergy Type Onset Date Status IVP dye (uncoded) Unknown Allergy Ac tive Reason For Referral No Information Medications Medication SIG (Take, Route, Frequency, Duration) [...] day 2022 Active PARoxetine HCl 20mg Active Problems Problem Type SNOMED Code ICD Code Onset Dates Problem Status W/U Status Risk Notes Problem 277818111 Colon cancer screening (Z12.11) Active confirmed Problem 448494875 Irritable bowel syndrome with constipation (K58.9) Active confirmed Problem 945030047 Irritable bowel syndrome with constipation (K58.1) Active confirmed Plan Of Treatment Future Test Test Name Order Date COLONOSCOPY 06/23/2012 COLONOSCOPY 12/09/2017 COLONOSCOPY 2022 Insurance Providers Payer Name Payer Address Payer Phone Subscriber Number Group Number Insured Name Patient Relationship to Insured Coverage Start Date Coverage End Date MEDICARE OF [place] [address] [place] [address] [id number] JAVON DOMENICA Self - patient is the insured [facility] [address] [place], [place] [id number] JAVONVERONICAER Self - patient is the insured Medical (General) History Medical History History ICD Code Colonoscopy 02/04/18, sessile serrated po lyp, five-year followup Elevated PSA/BPH kidney cancer 12/2010 kidney stones Hyperlipidemia Hypertension Surgical History Surgery Date(Month/Year) surgery for kidney cancer Adenoidectomy kidney stones cyst removed from back 2017 Right inguinal hernia repair 2021
[2024-08-11 10:51] LABS: Alanine Aminotransferase 22 U/L (0-40); Alkaline Phosphatase 85 U/L (39-117); Aspartate Amino Transferase 22 U/L (5-37); Bilirubin Direct 0.4 mg/dL (0.0-0.5); Bilirubin Total 1.1 mg/dL (0.0-1.0); Cholesterol 153 mg/dL (<200); HDL Cholesterol 44 mg/dL (>40); LDL Cholesterol Calculated 85 mg/dL (<100); Total Protein 6.8 g/dL (6.5-8.0); Triglycerides 123 mg/dL (<150)
[2024-08-11 11:07] LABS: Reflex LDLD? No
== END 2024-08-11 09:48 | disposition home or self-care (01) ==
LOC: HO.LNP 09:47
PROVIDERS: Visit Provider Internal Medicine
DX: E78.00 Pure hypercholesterolemia, unspecified (principal)
CPT/HCPCS: 80061; 80076

== ENCOUNTER 2025-02-09 09:37 | Outpatient (REF) | payer MEDICARE, BC, SELFPAY ==
--- OUTSIDE RECORDS SUMMARY | 2023-08-31 10:59 | XMS_ITS ---
Author Organization Brenden Sapp MD Address [address] [place] [phone] Care Team Providers Care Margin Clerk Name Role Phone Brenden Sapp Primary Care Provider Medications Medication SIG (Take, Route, Fr equency, Duration) Notes Start Date End Date Status Vancomycin HCl 125 MG 1 capsule Orally e very 6 hrs for 10 days 08/31/2023 Active Encounters Encounter Location Date Provider Diagnosis Brenden Sapp MD [facility] [address] [place] [address] [phone] 08/31/2023 Brenden Sapp Plan Of Treatment Medication Medication Name Sig Start Date Stop Date Notes Vancomycin HCl 125 MG 1 capsule Orally e very 6 hrs for 10 days 08/31/2023 Next Appt Details Provider Name:Brenden Gallagher ier, 02/16/2025 01:00:00 PM, [address] [place] [address], Suite [facility], [place], [place], [phone], Progress Notes * Robert ALEJANDRO CDOB:1950 (72 yo M)Acc No.[id number]:08/31/2023 Patient: Nikole Robert landin :1950 A ge:72 Y S ex:Male Address: [address] * Refills Start Vancomycin HCl Capsule, 125 MG, Orally, 40 Capsule, 1 capsule, every 6 hrs, 10 days * true * Date: Generated for Printi ng/Faxing/eTransmitting on: 04/11/2024 10:59 AM EST
--- OUTSIDE RECORDS SUMMARY | 2024-02-04 03:00 | XMS_ITS ---
Author Organization Brenden Sapp MD Address [address] [place], [place] [id number] Care Team Providers Care Roll Reclaimer Name Role Phone Brenden Sapp Primary Care Provider Results Component Value Reference Range Notes Complete Blood Count Auto Di ff Reviewed date:02/04/2024 12:45:51 PM Interpretation: Performing Lab:[facility], [address] [place] [phone] Notes/Report: White Blood Count 5.2 4.8-10.8 X10*3/uL Red Blood Count 5.03 4.60-5.80 X10*6/uL Hemoglobin 14.9 14.0-18.0 g/dl Hematocrit 43.6 42.0-52.0 % Mean Corpuscular Volume 86.7 80.0-98.0 fL Mean Corpuscular Hemoglobin 29.6 27.0-33.0 pg Mean Corpuscular HGB Conc 34.2 31.0-36.0 g/dl Red Cell Distribution Width 12.5 11.0-16.0 % Platelet Count 186 160-400 X10*3/uL Mean Platelet Volume 10.3 9.4-12.4 fL Neutrophils Percent Auto 40.7 45-73 % Imm Gran Pct Auto 0.2 0.0-0.4 % Lymphocytes Percent Auto 42.6 20-40 % Monocytes Percent Auto 9.0 2-11 % Eosinophils Percent Auto 6.9 0-4 % Basophils Percent Auto 0.6 0-2 % NRBC Pct Auto 0.0 0.0-0.2 /100WBC Neutrophils Absolute Auto 2.1 2.0-8.3 x10*3/u L Imm Gran Abs Auto 0.01 0.00-0.03 X10*3/uL Lymphocytes Absolute Auto 2.2 1.2-4.9 X10*3/u L Monocytes Absolute Auto 0.5 0.1-1.2 X10*3/uL Eosinophils Absolute Auto 0.4 0.0-0.4 X10*3/u L Basophils Absolute Auto 0.0 0.0-0.2 X10*3/uL NRBC Abs Auto 0.000 0.0-0.012 X10*3/uL Comprehensive [place]. Panel Fa st Reviewed date:02/04/2024 05:07:43 PM Interpretation: Performing Lab:[facility], [address] [place] [phone] Notes/Report: Sodium 141 135-145 mmol/L Potassium 3.8 3.3-5.1 mmol/L Chloride 108 96-108 mmol/L Carbon Dioxide 26 22-29 mmol/L Anion Gap 11 12-20 Blood Urea Nitrogen 16 9-16 mg/dL Creatinine 0.83 0.5-1.4 mg/dL Estimated Glomerular Filt Rate > 60 NOTE: For -[place] individuals, multiply the result by 1.210. Chronic Kidney Disease: Estimated GFR < 60 mL/min/1.73m2 Severe Kidney Disease: Estimated GFR < 15 mL/min/1.73m2 Glucose Fasting 92 60-99 mg/dL Calcium 8.9 8.4-10.2 mg/dL Bilirubin Total 0.9 0.0-1.0 mg/dL Aspartate Amino Transferase 23 5-37 U/L Alanine Aminotransferase 24 0-40 U/L Total Protein 6.7 6.5-8.0 g/dL Albumin Level 3.9 3.5-5.0 g/dL Alkaline Phosphatase 84 39-117 U/L Lipid Panel Reviewed date:02/04/2024 05:06:49 PM Interpretation: Performing Lab:[facility], [address] [place] [phone] Notes/Report: Triglycerides 107 <150 mg/dL Desirable Triglyceride: less than 150 mg/dL Borderline High Triglyceride 150-199 mg/dL High Triglyceride: 200-499 mg/dL Very High Triglyceride: greater than or equal to 5OO mg/dL Cholesterol 140 <200 mg/dL Desirable Cholesterol: less than 200 mg/dL Borderline High Cholesterol: 200-239 mg/dL High Cholesterol: greater than 239 mg/dL LDL Cholesterol Calculated 76 <100 mg/dL Desirable LDL: less than 100 mg/dL Near Optimal/Above Optimal LDL: 110-129 mg/dL Borderline High LDL: 130-159 mg/dL High LDL: 160-189 mg/dL Very High LDL: greater than or equal to 190 mg/dL HDL Cholesterol 43 >40 mg/dL Desirable HDL: greater than 40 mg/dL Note: This HDL assay may give artificially low results in patients with liver disease. PSA,Total (Free>4and<10) Reviewed date:02/11/2024 01:45:51 PM Interpretation:IDALIA 02/10 Performing Lab:[address] [phone] Notes/Report: PSA,Total (Free>4and<10) 7.07 0.00-4.00 ng/mL PSA methodology: Neumann Alinity i Chemiluminescent Microparticle Immunoassay (CMIA) UA ClnCatch+Micro w/rflx Cul t Reviewed date:02/04/2024 12:47:13 PM Interpretation: Performing Lab:[address] [phone] Notes/Report: [id number] Urine, Clean Catch Color Urine Yellow Appearance Urine Cloudy PH 6.0 5.0-9.0 Glucose Urine UA Negative Negative mg/dL Urine Blood Negative Negative Specific [place] - Urine 1.025 1.005-1.025 Urine Protein Negative Neg-Trace mg/dL Urine Ketones Negative Negative mg/dL Nitrite Urine Negative Negative Leukocyte Esterase Urine Negative Negative RBC Urine 0-2 0-2 /HPF WBC Urine 0-5 0-5 /HPF Squamous Epithelial Cell Urine 0-2 0-2 /HPF Bacteria Urine None Seen None Seen Hyaline Casts Urine 0-2 0-2 /LPF REASON FOR VISIT fasting yearly labs Encounters Encounter Location Date Provider Diagnosis Brenden Sapp MD [address] [place], [place] [id number] 02/04/2024 Brenden Sapp Hypokalemia E87.6 ; Pure hypercholesterolemia E78.00 ; Prostatism N40.0 and Leukopenia, unspecified type D72.819 Assessments Encounter Date Diagnosis (ICD Code) Assessment Notes Treatment Notes Treatment Clinical Notes Section Notes 02/04/2024 Hypokalemia (ICD-10 - E87.6) 02/04/2024 Pure hypercholesterolemia (ICD-10 - E78.00) 02/04/2024 Prostatism (ICD-10 - N40.0) 02/04/2024 Leukopenia, unspecif ied type (ICD-10 - D72.819) Plan Of Treatment Next Appt Details Provider Name:Brenden Gallagher ier, 02/16/2025 01:00:00 PM, [address] [place] [address], [address], [place], [place], [id number], Progress Notes * Robert ALEJANDRO CDOB:1950 (74 yo M)Acc No.[id number]:02/04/2024 Progress Note Patient: Robert RODRIGUEZ Provider: Daily Sapp MD :1950 A ge:73 Y S ex:Male Date:02/04/2024 Address:[address] [place] [id number] Subjective: * Chief Complaints: * 1 . Fasting yearly labs. * Medical History: Objective: * Vitals: Assessment: * Assessment: 1. H ypokalemia - E87.6 (Primary) 2 . P ure hypercholesterolemia - E78.00? 3. P rostatism - N40.0 4 . L eukopenia, unspecified type - D72.819 Plan: * Treatment: ?LAB: UA ClnCatch+Micro w/rflx Cult (Collection Date & Time - 02/04/2024 08:00 AM)2.?Pure hypercholesterolemia?LAB: Complete Blood Count Auto Diff (Collection Date & Time - 02/04/2024 08:00 AM) ?LAB: Comprehensive [place]. Panel Fast (Collection Date & Time - 02/04/2024 08:00 AM) ?LAB: Lipid Panel (Collection Date & Time - 02/04/2024 08:00 AM) ?LAB: PSA,Total (Free>4and<10) (Collection Date & Time - 02/04/2024 08:00 AM)* Melanie Rogersmanav Eubanks 01:45:40 PM EST > PATIENT CAME IN FOR APPT ?LAB: UA ClnCatch+Micro w/rflx Cult (Collection Date & Time - 02/04/2024 08:00 AM)3.?Prostatism?LAB: Complete Blood Count Auto Diff (Collection Date & Time - 02/04/2024 08:00 AM) ?LAB: Comprehensive [place]. Panel Fast (Collection Date & Time - 02/04/2024 08:00 AM) ?LAB: Lipid Panel (Collection Date & Time - 02/04/2024 08:00 AM) ?LAB: PSA,Total (Free>4and<10) (Collection Date & Time - 02/04/2024 08:00 AM)* SueSherrie Eubanks 01:45:40 PM EST > PATIENT CAME IN FOR APPT ?LAB: UA ClnCatch+Micro w/rflx Cult (Collection Date & Time - 02/04/2024 08:00 AM)4.?Leukopenia, unspecified type?LAB: Complete Blood Count Auto Diff (Collection Date & Time - 02/04/2024 08:00 AM) ?LAB: Comprehensive [place]. Panel Fast (Collection Date & Time - 02/04/2024 08:00 AM) ?LAB: Lipid Panel (Collection Date & Time - 02/04/2024 08:00 AM) ?LAB: PSA,Total (Free>4and<10) (Collection Date & Time - 02/04/2024 08:00 AM)* YoelgageSherieAlvesMelanieSherrie A 01:45:40 PM EST > PATIENT CAME IN FOR APPT ?LAB: UA ClnCatch+Micro w/rflx Cult (Collection Date & Time - 02/04/2024 08:00 AM) * Procedure Codes: 3 6415 VENIPUNCT, ROUTINE* * * The named appointment provid er may or may not be the originator of this progress note, and it is not deemed complete until electronically signed by the appointment provider. Sign off status: Pending * Provider: Daily Sapp MD Date: 04/05/2023 Generated for Los virk/Vania/Karin on: 04/11/2024 11:00 AM EST
--- OUTSIDE RECORDS SUMMARY | 2024-02-11 08:00 | XMS_ITS ---
Author Organization Brenden Sapp MD Address [address] [place], [place] [id number] Care Team Providers Care Electronics Commodity Manager Name Role Phone Brenden Sapp Primary Care Provider [phone] Allergies Allergen (clinical drug ingredient) Drug/Non Drug Allergy documented on EMR Reaction Allergy Type Onset Date Status IVP DYE (uncoded) rash Allergy Ac tive Results Component Value Reference Range Notes Occult Blood, Stool, Guaiac Reviewed date:02/11/2024 01:36:41 PM Interpretation:Negative Performing Lab: Notes/Report: Negative Occult Blood, Stool, Guaiac Neg Reason For Referral Reason CARPAL TUNNEL, LEFT WRIST Diagnosis 1 Carpal tunnel syndro me, left (G56.02) Referral Organization Brenden Sapp MD Referring Provider First Name Brenden Referring Provider Last Name Senait Referring Provider Speciality Internal M edicine Referred Provider Raysa Rojas Referred Provider Specialty Hand Surgery General Notes Sherrie Rogers 02/11/2024 01:42:27 PM EST > REFERRAL FAXED TO [facility] Sue MILTON Patti A 03/13/2024 12:52:40 PM EST > OFFICE NOTES RECD Referral Priority Routine Referral Appointment Date 03/14/2024 REASON FOR VISIT review labs, CBACK PSA FREE AND TOTAL Medications Medication SIG (Take, Route, Frequency, Duration) Notes Start Date End Date Status Nitroglycerin 2 % as directed 1/4 inch Transdermal Once a day as needed with pain for 30 days 03/19/2016 Not-Taking LORazepam 1 MG 1 tablet at bedtime as needed Orally Once a day 02/11/2016 Not-Taking Atorvastatin Calcium 40 MG take 1 tablet by mouth every day Orally Once a day Active PARoxetine HCl 20 MG TAKE 1 TABLET BY [facility] EVERY DAY IN THE MORNING FOR 90 DAYS Active Cialis 5 MG 1 tablet Orally for 30 day(s) 11/14/2014 Not-Taking MiraLax - as directed Orally N ot-Taking Social History Tobacco Use: Social History Observation Description Date Details (start date - stop date) Never Smoker NA - NA Tobacco Use/Smoking Question Answer Notes Patient is a nonsmoker Additional Findings: Tobacco Non-User Cu rrent non-smoker, currently using no form of tobacco Alcohol Screen Question Answer Notes Did you have a drink contain ing alcohol in the past year? Yes How often did you have a dri nk containing alcohol in the past year? Monthly or less (1 point) How many drinks did you have on a typical day when you were drinking in the past year? 1 or 2 drinks (0 point) How often did you have 6 or more drinks on one occasion in the past year? Less than monthly (1 point) Points 2 Interpretation Negative Problems Problem Type SNOMED Code ICD Code Onset Dates Problem Status W/U Status Risk Notes Problem [id number] Carpal tunnel syndrome of left wrist (G56.02) Active confirmed Problem [id number] Prostate cancer (C61) Active confirmed Problem Carpal tunnel syndrome (94614412) Carpal tunnel syndrome, left (G56.02) Active confirmed Vital Signs Blood pressure systolic 122 mm Hg 02/11/20 24 Blood pressure diastolic 74 mm Hg 024 Height 71 in 02/11/2024 Weight 212 lbs 02/11/2024 BMI 29.56 kg/m2 02/11/2024 weight is down 3 pounds [facility] 5[facility]24 Encounters Encounter Location Date Provider Diagnosis Brenden Sapp MD [address] [place], [place] [phone] 02/11/2024 Brenden Sapp Carpal tunnel syndro me of left wrist G56.02 ; Prostate cancer C61 ; Anxiety F41.9 ; Pure hypercholesterolemia E78.00 ; Colon cancer screening Z12.11 and Depression screening Z13.31 Assessments Encounter Date Diagnosis (ICD Code) Assessment Notes Treatment Notes Treatment Clinical Notes Section Notes 02/11/2024 Carpal tunnel syndro me of left wrist (ICD-10 - G56.02) referral to hand surgeon at [facility]/REFERRAL MADE TO DR ROJAS, THEY WILL CONTACT PATIENT 02/11/2024 Prostate cancer (ICD -10 - C61) need notes from dr taylor/ REQUEST MADE TO UROLOGY MED RECORDS 02/11/2024 Anxiety (ICD-10 - F41.9) sta ble, will contonue current regiment doing well on paroxitne 02/11/2024 Pure hypercholesterolemia (ICD-10 - E78.00) stable, will continue current regiment 02/11/2024 Colon cancer screeni ng (ICD-10 - Z12.11) guaiac negative 02/11/2024 Depression screening (ICD-10 - Z13.31) negative screen Plan Of Treatment Medication Medication Name Sig Start Date Stop Date Notes Atorvastatin Calcium 40 MG take 1 tablet by mouth every day Orally Once a day PARoxetine HCl 20 MG TAKE 1 TABLET BY MO UTH EVERY DAY IN THE MORNING FOR 90 DAYS Treatment Notes Assessment Notes Carpal tunnel syndrome of left wrist ref erral to hand surgeon at [facility]/REFERRAL MADE TO DR ROJAS, THEY WILL CONTACT PATIENT Prostate cancer need notes from dr abdirahman mcclelland/ REQUEST MADE TO UROLOGY MED RECORDS Anxiety stable, will contonu e current regiment Pure hypercholesterolemia stable, will c ontinue current regiment Colon cancer screening guaiac negative Depression screening negative screen Referrals Referral Date Details 02/11/2024 02/11/2024, CARPAL T UNNEL, LEFT WRIST, Raysa Rojas Next Appt Details Provider Name:Brenden Gallagher ier, 02/16/2025 01:00:00 PM, [address] [place] [address], [address], [place], [place], [phone], Progress Notes * Robert ALEJANDRO CDOB:1950 (73 yo M)Acc No.[id number]:02/11/2024 Patient: Nikole Robert landin Provider: Daily Sapp MD :1950 A ge:73 Y S ex:Male Date:02/11/2024 Address:[address] [place] [id number] Subjective: * Chief Complaints: * R eview labsCBACK PSA FREE AND TOTAL * HPI: D epression Screening: PHQ-9 L ittle interest or pleasure in doing things N ot at all, F eeling down, depressed, or hopeless N ot at all, T rouble falling or staying asleep, or sleeping too much N ot at all, F eeling tired or having little energy N ot at all, P oor appetite or overeating N ot at all, F eeling bad about yourself or that you are a failure, or have let yourself or your family down N ot at all, T rouble concentrating on things, such as reading the newspaper or watching television N ot at all, M oving or speaking so slowly that other people could have noticed; or the opposite, being so fidgety or restless that you have been moving around a lot more than usual N ot at all, T houghts that you would be better off or of hurting yourself in some way N ot at all, T otal Score 0 . I nterpretation and Intervention D epression Screening Findings N egative, F ollow-Up for Depression : review of PHQ-9 found negative result, no follow-up needed. patient is a 73 yo male here for review of recent labs and follow up of chronic issues, having pain in left palm into fingers. had numbness into fingers. F all Risk: History H ave you had any falls with injury in the past year? N o, H ave you had two or more falls in the past year? N o. C ommunication Needs: Communication Needs D oes the patient have a hearing impairment N o, D oes the patient have a vision impairment? Y es, I f yes, what is the vision impairment? G lasses, D oes the patient have a cognition impairment? N o. S ANU Questions: SDOH Questions I n the past year have you been worried about losing housing? N o, I n the past year have you or any family members you live with been unable to get any of the following when it was really needed? Check all that apply: N one. * ROS: G eneral/Constitutional: Patient denies f atigue , headache. C hange in appetite?denies. C hills d enies. F ever d enies. O phthalmologic: Blurred vision d enies. D ischarge d enies. P ain d enies. E NT: Patient denies d ecreased sense of smell , any loss of taste , sore throat. D ecreased hearing d enies. S ore throat d enies. S wollen glands d enies. E ndocrine: Cold intolerance d enies. E xcessive thirst d enies. H eat intolerance d enies. W eight loss d enies. R espiratory: Cough d enies. S hortness of breath at rest d enies. S hortness of breath with exertion d enies. W heezing d enies. C ardiovascular: Chest pain at rest d enies. C hest pain with exertion?denies. I rregular heartbeat d enies. S hortness of breath d enies. ? G astrointestinal: Abdominal pain d enies. C hange in bowel habits d enies. D iarrhea d enies. N ausea d enies. R ectal bleeding d enies. V omiting d enies . G enitourinary: Blood in urine d enies. D ifficulty urinating d enies. F requent urination d enies. M usculoskeletal: Patient denies m uscle aches. P ainful joints d enies. W eakness d enies. P eripheral Vascular: Patient denies r ed and blue toes. S kin: Dry skin d enies. I tching d enies. D enies?Mole(s), changes in moles, new moles or any lesions of concern. D enies P hotosensitivity. R maria del rosario d enies. N eurologic: Dizziness d enies. F ainting d enies. H eadache?denies. * Medical History: * Surgical History: * Hospitalization/Major Diagno stic Procedure: * Family History: F ather: 48 yrs, cancer,stomach, diagnosed with Cancer. M other: alive 92 yrs, arthritis, diagnosed with Hypertension. 3 sister(s) - healthy. 1 son(s) - healthy. . Father - abdominal cancer, Denies mental health/substance abuse family history, Denies mental health/substance abuse family history, Denies mental health/substance abuse family history, Denies mental health/substance abuse family history. * Social History: T obacco Use: T obacco Use/Smoking P atient is a n onsmoker, A dditional Findings: Tobacco Non-User C urrent non-smoker, currently using no form of tobacco. D rugs/Alcohol: A lcohol Screen D id you have a drink containing alcohol in the past year? Y es, H ow often did you have a drink containing alcohol in the past year? M onthly or less (1 point), H ow many drinks did you have on a typical day when you were drinking in the past year? 1 or 2 drinks (0 point), H ow often did you have 6 or more drinks on one occasion in the past year? L ess than monthly (1 point), P oints 2 , I nterpretation N egative. M iscellaneous: C affeine: yes, frequency:, 1-2 cups per day every few days. Children: yes. no Community involvements. Exercise: yes, walks dog daily and yardwork. Housing: owning. Living with: spouse. Marital status: . Occupation: works part-time. Pets: dog. no Travel outside of the [place]. * Medications: T akingPARoxetine HCl 20 MG Tablet TAKE 1 TABLET BY MOUTH EVERY DAY IN THE MORNING FOR 90 DAYS Atorvastatin Calcium 40 MG Tablet take 1 tablet by mouth every day Orally Once a dayTaking PARoxetine HCl 20 MG Tablet TAKE 1 TABLET BY MOUTH EVERY DAY IN THE MORNING FOR 90 DAYS Taking Atorvastatin Calcium 40 MG Tablet take 1 tablet by mouth every day Orally Once a dayNot-Taking/PRNMiraLax - Powder as directed Orally LORazepam 1 MG Tablet 1 tablet at bedtime as needed Orally Once a dayNitroglycerin 2 % Ointment as directed 1/4 inch Transdermal Once a day as needed with painCialis 5 MG Tablet 1 tablet Orally Medication List reviewed and reconciled with the patientNot-Taking/PRN MiraLax - Powder as directed Orally Not-Taking/PRN LORazepam 1 MG Tablet 1 tablet at bedtime as needed Orally Once a dayNot-Taking/PRN Nitroglycerin 2 % Ointment as directed 1/4 inch Transdermal Once a day as needed with painNot-Taking/PRN Cialis 5 MG Tablet 1 tablet Orally Medication List reviewed and reconciled with the patient * Allergies: 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 * P ast Orders: L ab:Comprehensive [place]. Panel Fast (Order Date - 02/04/2024) (Collection Date - 02/04/2024) Value Reference Range Sodium 141 135-145 - mmol/L Bilirubin Total 0.9 0.0-1.0 - mg/dL Aspartate Amino Transferase 23 5-37 - U/L Alanine Aminotransferase 24 0-40 - U/L Total Protein 6.7 6.5-8.0 - g/dL Albumin Level 3.9 3.5-5.0 - g/dL Alkaline Phosphatase 84 39-117 - U/L Potassium 3.8 3.3-5.1 - mmol/L Chloride 108 96-108 - mmol/L Carbon Dioxide 26 22-29 - mmol/L Anion Gap 11 L 12-20 - Blood Urea Nitrogen 16 9-16 - mg/dL Creatinine 0.83 0.5-1.4 - mg/dL Estimated Glomerular Filt Rate > 60 - Glucose Fasting 92 60-99 - mg/dL Calcium 8.9 8.4-10.2 - mg/dL L ab:Lipid Panel (Order Date - 02/04/2024) (Collection Date - 02/04/2024) Value Reference Range Triglycerides 107 <150 - mg/dL Cholesterol 140 <200 - mg/dL LDL Cholesterol Calculated 76 <100 - mg/dL HDL Cholesterol 43 >40 - mg/dL L ab:UA ClnCatch+Micro w/rflx Cult (Order Date - 02/04/2024) (Collection Date - 02/04/2024) Value Reference Range Color Urine Yellow - Appearance Urine Cloudy - PH 6.0 5.0-9.0 - Glucose Urine UA Negative Negative - mg/dL Urine Blood Negative Negative - Specific [place] - Urine 1.025 1.005-1.025 - Urine Protein Negative Neg-Trace - mg/dL Urine Ketones Negative Negative - mg/dL Nitrite Urine Negative Negative - Leukocyte Esterase Urine Negative Negative - RBC Urine 0-2 0-2 - /HPF WBC Urine 0-5 0-5 - /HPF Squamous Epithelial Cell Urine 0-2 0-2 - /HP F Bacteria Urine None Seen None Seen - Hyaline Casts Urine 0-2 0-2 - /LPF L ab:Complete Blood Count Auto Diff (Order Date - 02/04/2024) (Collection Date - 02/04/2024) Value Reference Range White Blood Count 5.2 4.8-10.8 - X10*3/uL Red Blood Count 5.03 4.60-5.80 - X10*6/uL Hemoglobin 14.9 14.0-18.0 - g/dl Hematocrit 43.6 42.0-52.0 - % Mean Corpuscular Volume 86.7 80.0-98.0 - fL Mean Corpuscular Hemoglobin 29.6 27.0-33.0 - pg Mean Corpuscular HGB Conc 34.2 31.0-36.0 - g/ dl Red Cell Distribution Width 12.5 11.0-16.0 - % Platelet Count 186 160-400 - X10*3/uL Mean Platelet Volume 10.3 9.4-12.4 - fL Neutrophils Percent Auto 40.7 L 45-73 - % Imm Gran Pct Auto 0.2 0.0-0.4 - % Lymphocytes Percent Auto 42.6 H 20-40 - % Monocytes Percent Auto 9.0 2-11 - % Eosinophils Percent Auto 6.9 H 0-4 - % Basophils Percent Auto 0.6 0-2 - % NRBC Pct Auto 0.0 0.0-0.2 - /100WBC Neutrophils Absolute Auto 2.1 2.0-8.3 - x10* 3/uL Imm Gran Abs Auto 0.01 0.00-0.03 - X10*3/uL Lymphocytes Absolute Auto 2.2 1.2-4.9 - X10* 3/uL Monocytes Absolute Auto 0.5 0.1-1.2 - X10*3/ uL Eosinophils Absolute Auto 0.4 0.0-0.4 - X10* 3/uL Basophils Absolute Auto 0.0 0.0-0.2 - X10*3/ uL NRBC Abs Auto 0.000 0.0-0.012 - X10*3/uL * Examination: G eneral Examination: GENERAL APPEARANCE: w ell developed, well nourished, in no acute distress. HEAD: n ormocephalic, atraumatic. EYES: p upils equal, round, reactive to light and accommodation, sclera non-icteric. EARS: n ormal. ORAL CAVITY: m ucosa moist. THROAT: c lear. NECK/THYROID: n janelle supple, full range of motion, no cervical lymphadenopathy, no bruits. SKIN: w arm and dry, no suspicious lesions. HEART: r egular rate and rhythm, S1, S2 normal, no murmurs.? LUNGS: c lear to auscultation bilaterally. ABDOMEN: s oft, nontender, nondistended, bowel sounds present, normal, no organomegaly , no masses palpable. RECTAL EXAM: n ormal tone, no external hemorrhoids, no masses palpable, prostate normal, stool guaiac negative. MALE GENITOURINARY: c ircumcised , no penile lesions or discharge , testes descended bilaterally. EXTREMITIES: n o clubbing, cyanosis, or edema. NEUROLOGIC: n onfocal, motor strength normal upper and lower extremities, sensory exam intact. Assessment: * Assessment: 1. C arpal tunnel syndrome of left wrist - G56.02 (Primary) 2 . P rostate cancer - C61?3. A nxiety - F41.9 4 . P ure hypercholesterolemia - E78.00 5 . C olon cancer screening - Z12.11 6 . D epression screening - Z13.31 Plan: * Treatment: 2. P rostate cancer Notes: need notes from dr taylor/ REQUEST MADE TO UROLOGY MED RECORDS 3. A nxiety Continue PARoxetine HCl Tablet, 20 MG, TAKE 1 TABLET BY MOUTH EVERY DAY IN THE MORNING FOR 90 DAYS.? Notes: stable, will contonue current regiment Clinical Notes: doing well on paroxitne 4. P ure hypercholesterolemia Continue Atorvastatin Calcium Tablet, 40 MG, take 1 tablet by mouth every day, Orally, Once a day.? Notes: stable, will continue current regiment 5. C olon cancer screening L AB: Occult Blood, Stool, Guaiac N egative Value Reference Range O ccult Blood, Stool, Guaiac Neg Notes: guaiac negative??6.?Depression screening? Notes: negative screen??7.?Others? Referral To:Raysa Rojas??Hand Surgery ?Reason:CARPAL TUNNEL, LEFT WRIST * Procedure Codes: 8 2270 TEST FOR BLOOD, FECES * Preventive Medicine: Counseling: C are goal follow-up plan: C ounseling for abnormal BMI provided?Yes, Abdirahman london Normal BMI Follow-up Daily manning encouragement to exercise. * * Sign off status: Completed true * Provider: Daily Sapp MD Date: 04/12/2023 Generated for Los virk/Vania/Karin on: 04/11/2024 11:00 AM EST History and Physical Notes * HPI (History of Present Illness) Category Sub-Category Detail Notes Category Not es Depression Screening PHQ-9 Little inte rest or pleasure in doing things: Not at all patient is a 73 yo male here for review of recent labs and follow up of chronic issues, having pain in left palm into fingers. had numbness into fingers Feeling down, depressed, or hopeless: No t at all Trouble falling or staying asleep, or sl eeping too much: Not at all Feeling tired or having little energy: N ot at all Poor appetite or overeating: Not at all Feeling bad about yourself o r that you are a failure, or have let yourself or your family down: Not at all Trouble concentrating on thi ngs, such as reading the newspaper or watching television: Not at all Moving or speaking so slowly that other people could have noticed; or the opposite, being so fidgety or restless that you have been moving around a lot more than usual: Not at all Thoughts that you would be b nedra off or of hurting yourself in some way: Not at all Total Score: 0 Interpretation and Intervention Depression Herrera whitten Findings: Negative Follow-Up for Depression: : review of PH Q-9 found negative result, no follow-up needed SDOH Questions SDOH Questions In the past year have you been worried about losing housing?: No In the past year have you or any family members you live with been unable to get any of the following when it was really needed? Check all that apply:: None Fall Risk History Have you had any falls with injury i n the past year?: No Have you had two or more falls in the st year?: No Communication Needs Communication Needs Does the patient have a hearing impairment: No Does the patient have a vision impairmen t?: Yes If yes, what is the vision impairment?: Glasses Does the patient have a cognition impair ment?: No Examination Category Sub-Category Detail Notes Category Not es General Examination GENERAL APPEARANCE: well dev eloped, well nourished, in no acute distress HEAD: normocephalic, atrau matic EYES: pupils equal, round, reactive to light and accommodation, sclera non-icteric EARS: normal THROAT: clear NECK/THYROID: neck supple, full ra nge of motion, no cervical lymphadenopathy, no bruits HEART: regular rate and rhy thm, S1, S2 normal, no murmurs LUNGS: clear to auscultatio n bilaterally ABDOMEN: soft, nontender, non distended, bowel sounds present, normal, no organomegaly , no masses palpable NEUROLOGIC: nonfocal, motor stre ngth normal upper and lower extremities, sensory exam intact SKIN: warm and dry, no mar picious lesions EXTREMITIES: no clubbing, cyanosi s, or edema MALE GENITOURINARY: circumcised , no pen ile lesions or discharge , testes descended bilaterally RECTAL EXAM: normal tone, no exte rnal hemorrhoids, no masses palpable, prostate normal, stool guaiac negative ORAL CAVITY: mucosa moist Consultation Request Notes Referral Date Referring Provider Referred Provider Not es 02/11/2024 Brenden Sapp Allison CARPAL TUNNEL, LEFT WRIST
--- OUTSIDE RECORDS SUMMARY | 2024-02-29 17:48 | XMS_ITS ---
Author Organization Brenden Sapp MD Address [address] [place] [phone] Care Team Providers Care Java Spring Developer Name Role Phone Brenden Sapp Primary Care Provider REASON FOR VISIT Dr. Sapp and staff Encounters Encounter Location Date Provider Diagnosis Brenden Sapp MD [address] [place] [phone] 02/29/2024 Brenden Sapp Plan Of Treatment Next Appt Details Provider Name:Brenden Gallagher ier, 02/16/2025 01:00:00 PM, [address], [address], [place], [place], [phone], Progress Notes * Robert ALEJANDRO CDOB:1950 (73 yo M)Acc No.[id number]:02/29/2024 Patient: Robert More :1950 A ge:73 Y S ex:Male Address:[address] * true * Date: Generated for Printi ng/Faxing/eTransmitting on: 04/11/2024 10:59 AM EST
--- OUTSIDE RECORDS SUMMARY | 2024-05-25 09:15 | XMS_ITS ---
Author Organization Brenden Sapp MD Address [address] [place], [place] [phone] Care Team Providers Care Gun Fertilizer Name Role Phone Brenden Sapp Primary Care Provider Allergies Allergen (clinical drug ingredient) Drug/Non Drug Allergy documented on EMR Reaction Allergy Type Onset Date Status IVP DYE (uncoded) rash Allergy Ac tive REASON FOR VISIT Patient did not do a Telehealth, tried to cancel Medications Medication SIG (Take, Route, Frequency, Duration) Notes Start Date End Date Status Cialis 5 MG 1 tablet Orally for 30 day(s) 11/14/2014 Not-Taking Nitroglycerin 2 % as directed 1/4 inch Transdermal Once a day as needed with pain for 30 days 03/19/2016 Not-Taking PARoxetine HCl 20 MG TAKE 1 TABLET BY MO [facility] EVERY DAY IN THE MORNING FOR 90 DAYS for 90 Active LORazepam 1 MG 1 tablet at bedtime as needed Orally Once a day 02/11/2016 Not-Taking MiraLax - as directed Orally N ot-Taking Atorvastatin Calcium 40 MG take 1 tablet by mouth every day Orally Once a day Active Encounters Encounter Location Date Provider Diagnosis Brenden Sapp MD [address] [place], [place] [phone] 05/25/2024 Brenden Sapp Plan Of Treatment Next Appt Details Provider Name:Brenden Gallagher ier, 02/16/2025 01:00:00 PM, [address], [address], [place], [place], [phone], Progress Notes * Robert ALEJANDRO CDOB:1950 (74 yo M)Acc No.[id number]:05/25/2024 Patient: Robert RODRIGUEZ Provider: Daily Sapp MD :1950 A ge:73 Y S ex:Male Date:05/25/2024 Address:[address] [place], [place] [address], [id number] Subjective: * Chief Complaints: * 1 . Patient did not do a Telehealth, tried to cancel. * HPI: S ymptom(s): Telehealth T otal time spend talking with patient (minutes)?0. * ROS: G eneral/Constitutional: Denies H eadache. E NT: Admits S ore throat. * Medical History: c olonoscopy 07/01/2012 - repeat in 5 years w/Dr. Landeros; colonoscopy 02/04/18 - Dr. Landeros due for recall in 02/2023.11/06/22 Colonoscopy pending path. * Medications: T aking Atorvastatin Calcium 40 MG Tablet take 1 tablet by mouth every day Orally Once a day , Taking PARoxetine HCl 20 MG Tablet TAKE 1 TABLET BY MOUTH EVERY DAY IN THE MORNING FOR 90 DAYS , Not-Taking/PRN MiraLax - Powder as directed Orally , Not-Taking/PRN LORazepam 1 MG Tablet 1 tablet at bedtime as needed Orally Once a day , Not-Taking/PRN Nitroglycerin 2 % Ointment as directed 1/4 inch Transdermal Once a day as needed with pain , Not-Taking/PRN Cialis 5 MG Tablet 1 tablet Orally * Allergies: I BARREL HEADER DYE: rash. Objective: * Vitals: W t-k.26. Assessment: Plan: * Treatment: * * The named appointment provid er may or may not be the originator of this progress note, and it is not deemed complete until electronically signed by the appointment provider. Sign off status: Pending * Provider: Daily Sapp MD Date: 0 05/25/2024 Generated for Los virk/Vania/Karin on: 1 04/11/2024 11:00 AM EST History and Physical Notes * HPI (History of Present Illness) Category Sub-Category Detail Notes Category Not es Symptom(s) Telehealth Total time spend talking with patient (minutes): 0
--- OUTSIDE RECORDS SUMMARY | 2024-08-11 03:00 | XMS_ITS ---
Author Organization Brenden Sapp MD Address [address] [place], [place] [phone] Care Team Providers Care Sewing Machines Salesperson Name Role Phone Brenden Sapp Primary Care Provider Results Component Value Reference Range Notes Liver Panel Reviewed date:08/11/2024 12:11:47 PM Interpretation: Performing Lab:[facility] [place], [address] [place] [phone] Notes/Report: Bilirubin Total 1.1 0.0-1.0 mg/dL Bilirubin Direct 0.4 0.0-0.5 mg/dL Aspartate Amino Transferase 22 5-37 U/L Alanine Aminotransferase 22 0-40 U/L Total Protein 6.8 6.5-8.0 g/dL Albumin Level 4.0 3.5-5.0 g/dL Alkaline Phosphatase 85 39-117 U/L Lipid Panel with Reflex Reviewed date:08/11/2024 12:32:17 PM Interpretation: Performing Lab:[address] [address] Notes/Report: Triglycerides 123 <150 mg/dL Desirable Triglyceride: less than 150 mg/dL Borderline High Triglyceride 150-199 mg/dL High Triglyceride: 200-499 mg/dL Very High Triglyceride: greater than or equal to 5OO mg/dL Cholesterol 153 <200 mg/dL Desirable Cholesterol: less than 200 mg/dL Borderline High Cholesterol: 200-239 mg/dL High Cholesterol: greater than 239 mg/dL LDL Cholesterol Calculated 85 <100 mg/dL Desirable LDL: less than 100 mg/dL Near Optimal/Above Optimal LDL: 110-129 mg/dL Borderline High LDL: 130-159 mg/dL High LDL: 160-189 mg/dL Very High LDL: greater than or equal to 190 mg/dL HDL Cholesterol 44 >40 mg/dL Desirable HDL: greater than 40 mg/dL Note: This HDL assay may give artificially low results in patients with liver disease. REASON FOR VISIT FASTING LIPIDS Encounters Encounter Location Date Provider Diagnosis Brenden Sapp MD [address] [place], [place] [phone] 08/11/2024 Brenden Sapp Pure hypercholestero lemia E78.00 Assessments Encounter Date Diagnosis (ICD Code) Assessment Notes Treatment Notes Treatment Clinical Notes Section Notes 08/11/2024 Pure hypercholesterolemia (ICD-10 - E78.00) Plan Of Treatment Next Appt Details Provider Name:Brenden Gallagher ier, 02/16/2025 01:00:00 PM, [address], Suite [facility], [place], [place], [phone], Progress Notes * Robert ALEJANDRO CDOB:1950 (74 yo M)Acc No.[id number]:08/11/2024 Progress Note Patient: Robert RODRIGUEZ Provider: Daily Sapp MD :1950 A ge:73 Y S ex:Male Date:08/11/2024 Address:[address] [place] [address] [id number] Subjective: * Chief Complaints: * 1 . FASTING LIPIDS. * Medical History: Objective: * Vitals: Assessment: * Assessment: 1. P ure hypercholesterolemia - E78.00 (Primary) Plan: * Treatment: * Procedure Codes: 3 6415 VENIPUNCT, ROUTINE* * * The named appointment provid er may or may not be the originator of this progress note, and it is not deemed complete until electronically signed by the appointment provider. Sign off status: Pending * Provider: Daily Sapp MD Date: 0 08/11/2024 Generated for Los virk/Vania/Karin on: 1 04/11/2024 10:59 AM EST
--- OUTSIDE RECORDS SUMMARY | 2024-08-11 09:41 | XMS_ITS ---
Author Organization Brenden Sapp MD Address [address] [place] [phone] Care Team Providers Care Wastewater Treatment Supervisor Name Role Phone Brenden Sapp Primary Care Provider REASON FOR VISIT REFILL TAMSULOSIN Encounters Encounter Location Date Provider Diagnosis Brenden Sapp MD [address] [place] [phone] 08/11/2024 Brenden Sapp Plan Of Treatment Next Appt Details Provider Name:Brenden Gallagher ier, 02/16/2025 01:00:00 PM, [address], [address], [place], [place], [phone], Progress Notes * Robert ALEJANDRO CDOB:1950 (73 yo M)Acc No.[id number]:08/11/2024 Patient: Robert RODRIGUEZ :1950 A ge:73 Y S ex:Male Address:[place] * true * Date: Generated for Printi ng/Faxing/eTransmitting on: 04/11/2024 11:00 AM EST
--- OUTSIDE RECORDS SUMMARY | 2024-08-18 05:45 | XMS_ITS ---
Author Organization Brenden Sapp MD Address [address] [place], [place] [phone] Care Team Providers Care Procurement Assistant Name Role Phone Brenden Sapp Primary Care Provider Allergies Allergen (clinical drug ingredient) Drug/Non Drug Allergy documented on EMR Reaction Allergy Type Onset Date Status IVP DYE (uncoded) rash Allergy Ac tive REASON FOR VISIT 6 MO F/U Medications Medication SIG (Take, Route, Frequency, Duration) Notes Start Date End Date Status LORazepam 1 MG 1 tablet at bedtime as needed Orally Once a day 02/11/2016 Not-Taking Nitroglycerin 2 % as directed 1/4 inch Transdermal Once a day as needed with pain for 30 days 03/19/2016 Not-Taking MiraLax - as directed Orally N ot-Taking Tamsulosin HCl 0.4 MG 1 capsule Orally t wice a day for 90 days 08/18/2024 Active Cialis 5 MG 1 tablet Orally for 30 day(s) 11/14/2014 Not-Taking Atorvastatin Calcium 40 MG take 1 tablet by mouth every day Orally Once a day Active PARoxetine HCl 20 MG TAKE 1 TABLET BY [place] [facility] EVERY DAY IN THE MORNING FOR 90 DAYS for 90 Active Vital Signs Blood pressure systolic 142 mm Hg 08/19/19 25 Blood pressure diastolic 80 mm Hg 025 Height 71 in 08/18/2024 Weight 210 lbs 08/18/2024 BMI 29.29 kg/m2 08/18/2024 weight is down 2 pounds [facility] 11-8-24 Encounters Encounter Location Date Provider Diagnosis Brenden Sapp MD [address] [place], [place] [phone] 08/18/2024 Brenden Sapp Prostate cancer C61 ; Pure hypercholesterolemia E78.00 and Prostatism N40.0 Assessments Encounter Date Diagnosis (ICD Code) Assessment Notes Treatment Notes Treatment Clinical Notes Section Notes 08/18/2024 Prostate cancer (ICD -10 - C61) 08/18/2024 Pure hypercholesterolemia (ICD-10 - E78.00) doing well 08/18/2024 Prostatism (ICD-10 - N40.0) will start tamsulosin Plan Of Treatment Medication Medication Name Sig Start Date Stop Date Notes Tamsulosin HCl 0.4 MG 1 capsule Orally t wice a day for 90 days 08/18/2024 Treatment Notes Assessment Notes Pure hypercholesterolemia doing well Prostatism will start tamsulosi n Next Appt Details Provider Name:Brenden Gallagher ier, 02/16/2025 01:00:00 PM, [address] [place] [address], [address], [place], [place], [phone], Progress Notes * Robert ALEJANDRO CDOB:1950 (73 yo M)Acc No.[id number]:08/18/2024 Progress Notes Patient: Robert RODRIGUEZ Provider: Daily Sapp MD :1950 A ge:73 Y S ex:Male Date:08/18/2024 Address:[address] [place], [place] [address], [id number] Subjective: * Chief Complaints: * 6 MO F/U * HPI: S ymptom(s): patient is a 73 yo male here for 6 month follow up visit having some trouble with urination since his prostate irradiation. * ROS: G eneral/Constitutional: Denies C hills. D enies F atigue. D enies F ever. D enies H eadache. E NT: Denies S ore throat. R espiratory: Denies C ough. D enies S hortness of breath at rest. D enies S hortness of breath with exertion. G astrointestinal: Denies D iarrhea. D enies N ausea. * Medical History: * Surgical History: * Hospitalization/Major Diagno stic Procedure: * Medications: T akingAtorvastatin Calcium 40 MG Tablet take 1 tablet by mouth every day Orally Once a day PARoxetine HCl 20 MG Tablet TAKE 1 TABLET BY MOUTH EVERY DAY IN THE MORNING FOR 90 DAYS Taking Atorvastatin Calcium 40 MG Tablet take 1 tablet by mouth every day Orally Once a day Taking PARoxetine HCl 20 MG Tablet TAKE 1 TABLET BY MOUTH EVERY DAY IN THE MORNING FOR 90 DAYS Not-Taking/PRNMiraLax - Powder as directed Orally LORazepam 1 MG Tablet 1 tablet at bedtime as needed Orally Once a day Nitroglycerin 2 % Ointment as directed 1/4 inch Transdermal Once a day as needed with pain Cialis 5 MG Tablet 1 tablet Orally Medication List reviewed and reconciled with the patientNot-Taking/PRN MiraLax - Powder as directed Orally Not-Taking/PRN LORazepam 1 MG Tablet 1 tablet at bedtime as needed Orally Once a day Not-Taking/PRN Nitroglycerin 2 % Ointment as directed 1/4 inch Transdermal Once a day as needed with pain Not-Taking/PRN Cialis 5 MG Tablet 1 tablet Orally Medication List reviewed and reconciled with the patient * Allergies: I DISPATCH LEAD DYE: selin[Allergies Verified] Objective: * Vitals: H t: 71, Wt: 210, BMI:29.29, BP:142/80, Repeat BP:120/88, Wt-k.26. weight is down 2 pounds since 02-11-24. * Examination: G eneral Examination: GENERAL APPEARANCE: a lert, well hydrated, in no distress.? HEAD: n ormocephalic. SKIN: g ood turgor. HEART: n o murmurs, rubs, gallops, regular rate and rhythm.? LUNGS: n o wheezes, rales, rhonchi, good air movement, clear to auscultation bilaterally. Assessment: * Assessment: 1. P rostate cancer - C61 (Primary) 2 . P ure hypercholesterolemia - E78.00? 3. P rostatism - N40.0 Plan: * Treatment: 2. P ure hypercholesterolemia Notes: doing well 3. P rostatism Notes: will start tamsulosin * Procedure Codes: * * Sign off status: Completed true * Provider: Daily Sapp MD Date: 0 08/18/2024 Generated for Los virk/Vania/Melindasmitting on: 1 04/11/2024 10:59 AM EST History and Physical Notes * HPI (History of Present Illness) Category Sub-Category Detail Notes Category Not es Symptom(s) patient is a 73 yo male here for 6 month follow up visit having some trouble with urination since his prostate irradiation Examination Category Sub-Category Detail Notes Category Not es General Examination GENERAL APPEARANCE: alert, w ell hydrated, in no distress HEAD: normocephalic HEART: no murmurs, rubs, ga llops, regular rate and rhythm LUNGS: no wheezes, rales, r honchi, good air movement, clear to auscultation bilaterally SKIN: good turgor
--- NOTE | ~2025-02-09 | XR_ITS ---
EXAMINATION: XR THORACIC SPINE CLINICAL INFORMATION: BACK PAIN COMPARISON: None available. TECHNIQUE: 3 views of the thoracic spine were obtained. FINDINGS: There is a very gentle right convex thoracolumbar scoliosis. There is a normal thoracic kyphosis. There is no fracture, compression deformity, or suspicious bone lesion. There is normal alignment without subluxation. There are multilevel thin anterior flowing syndesmophytes, changes suggestive of ankylosing spondylitis. Mild diffuse disc space narrowing is present. Normal facet alignment. The imaged paravertebral soft tissues, lungs, and mediastinal structures appear grossly normal. XR/XR thoracic spine 3V IMPRESSION: 1. No acute bony abnormalities of the thoracic spine. Mild multilevel degenerative disc changes. 2. Multilevel anterior flowing anterior syndesmophytes, suggestive of possible underlying ankylosing spondylitis. Electronically signed by: Edmundo Cutler MD 02/09/2025 10:19 AM [facility]
--- NOTE | ~2025-02-09 | XR_ITS ---
EXAMINATION: XR LUMBOSACRAL SPINE CLINICAL INFORMATION: PAIN COMPARISON: MRI April 09, 2010 TECHNIQUE: Three views of the lumbosacral spine. FINDINGS: There are 5 nonrib-bearing lumbar segments. There is minimal loss of height at superior L2. T12-L1: There is moderate loss of disc height and endplate osteophytes. L1-L2: There is subtle retrolisthesis and posterior endplate osteophytes. L2-L3: There is subtle retrolisthesis and small anterior L2 osteophyte. L3-L4: There is subtle retrolisthesis and anterior L4 osteophyte. There is facet sclerosis and osteophyte. L4-L5: There is facet sclerosis and osteophytes. L5-S1: There is facet sclerosis and osteophytes. XR/XR lumbar spine 2-3V IMPRESSION: Mild age-indeterminate superior endplate compression fracture of L2. Multilevel degenerative disc disease and facet osteoarthritis is mild. Electronically signed by: Rashawn Arevalo MD 02/09/2025 10:17 AM [facility]
--- OUTSIDE RECORDS SUMMARY | 2025-02-09 04:15 | XMS_ITS ---
Author Organization Brenden Sapp MD Address [address] [place] [id number] Care Team Providers Care Avionics Supervisor Name Role Phone Brenden Sapp Primary Care Provider REASON FOR VISIT FASTING LABS Medications Medication SIG (Take, Route, Frequency, Duration) Notes Start Date End Date Status Atorvastatin Calcium 40 MG TAKE 1 TABLET BY MOUTH EVERY DAY FOR 90 DAYS for 90 Active MiraLax - as directed Orally N ot-Taking LORazepam 1 MG 1 tablet at bedtime as needed Orally Once a day 02/11/2016 Not-Taking Nitroglycerin 2 % as directed 1/4 inch Transdermal Once a day as needed with pain for 30 days 03/19/2016 Not-Taking Cialis 5 MG 1 tablet Orally for 30 day(s) 11/14/2014 Not-Taking PARoxetine HCl 20 MG TAKE 1 TABLET BY MO UTH EVERY DAY IN THE MORNING FOR 90 DAYS for 90 Active Tamsulosin HCl 0.4 MG 1 capsule Orally t wice a day for 90 days 08/18/2024 Active Encounters Encounter Location Date Provider Diagnosis Brenden Sapp MD [address] [place], [place] [id number] 02/09/2025 Brenden Sapp Hypokalemia E87.6 ; Pure hypercholesterolemia E78.00 ; Prostatism N40.0 and Leukopenia, unspecified type D72.819 Assessments Encounter Date Diagnosis (ICD Code) Assessment Notes Treatment Notes Treatment Clinical Notes Section Notes 02/09/2025 Hypokalemia (ICD-10 - E87.6) 02/09/2025 Pure hypercholesterolemia (ICD-10 - E78.00) 02/09/2025 Prostatism (ICD-10 - N40.0) 02/09/2025 Leukopenia, unspecif ied type (ICD-10 - D72.819) Plan Of Treatment Pending Test Test Name Order Date Complete Blood Count Auto Diff 5 Comprehensive Harper. Panel Fast 5 Lipid Panel 02/09/2025 PSA,Total (Free>4and<10) 02/09/2025 UA ClnCatch+Micro w/rflx Cult 02/09/2025 Next Appt Details Provider Name:Brendenlen Iqbalalyssa ier, 02/16/2025 01:00:00 PM, [address] [facility], [address], [place], [place], [id number], Progress Notes * Robert ALEJANDRO CDOB:1950 (74 yo M)Acc No.[id number]:02/09/2025 Progress Note Patient: Robert RODRIGUEZ Provider: Daily Sapp MD :1950 A ge:74 Y S ex:Male Date:02/09/2025 Address:[address] [place] [id number] Subjective: * Chief Complaints: * 1 . FASTING LABS. * Medical History: * Medications: T aking PARoxetine HCl 20 MG Tablet TAKE 1 TABLET BY MOUTH EVERY DAY IN THE MORNING FOR 90 DAYS , Taking Tamsulosin HCl 0.4 MG Capsule 1 capsule Orally twice a day , Taking Atorvastatin Calcium 40 MG Tablet TAKE 1 TABLET BY MOUTH EVERY DAY FOR 90 DAYS , Not-Taking/PRN MiraLax - Powder as directed Orally , Not-Taking/PRN LORazepam 1 MG Tablet 1 tablet at bedtime as needed Orally Once a day , Not-Taking/PRN Nitroglycerin 2 % Ointment as directed 1/4 inch Transdermal Once a day as needed with pain , Not-Taking/PRN Cialis 5 MG Tablet 1 tablet Orally Objective: * Vitals: Assessment: * Assessment: 1. H ypokalemia - E87.6 (Primary) 2 . P ure hypercholesterolemia - E78.00? 3. P rostatism - N40.0 4 . L eukopenia, unspecified type - D72.819 Plan: * Treatment: 2. P ure hypercholesterolemia L AB: Complete Blood Count Auto Diff L AB: Comprehensive Harper. Panel Fast L AB: Lipid Panel L AB: PSA,Total (Free>4and<10) L AB: UA ClnCatch+Micro w/rflx Cult 3. P rostatism L AB: Complete Blood Count Auto Diff L AB: Comprehensive Harper. Panel Fast L AB: Lipid Panel L AB: PSA,Total (Free>4and<10) L AB: UA ClnCatch+Micro w/rflx Cult 4. L eukopenia, unspecified type L AB: Complete Blood Count Auto Diff L AB: Comprehensive Harper. Panel Fast L AB: Lipid Panel L AB: PSA,Total (Free>4and<10) L AB: UA ClnCatch+Micro w/rflx Cult * Procedure Codes: 3 6415 VENIPUNCT, ROUTINE* * * The named appointment provid er may or may not be the originator of this progress note, and it is not deemed complete until electronically signed by the appointment provider. Sign off status: Pending * Provider: Daily Sapp MD Date: 04/11/2024 Generated for Los virk/Vania/Jaclynitting on: 04/11/2024 11:00 AM EST
--- OUTSIDE RECORDS SUMMARY | 2025-02-09 04:15 | XMS_ITS ---
Author Organization Brenden Sapp MD Address [address] [place], [place] [phone] Care Team Providers Care Public Health Representative Name Role Phone Brenden Sapp Primary Care Provider Allergies Allergen (clinical drug ingredient) Drug/Non Drug Allergy documented on EMR Reaction Allergy Type Onset Date Status IVP DYE (uncoded) rash Allergy Ac tive Results Component Value Reference Range Notes XR thoracic spine 3V (Not ye t reviewed by provider) Interpretation: Performing Lab: Notes/Report: [address] [address] XRay Report Signed Patient: Robert Alejandro MR#: [id number] 6 : 1950 Acct:[id number] Age/Sex: 74 / M ADM Date: 02/09/25 Loc: HO.XRAY Attending Dr: Brenden Sapp MD Ordering Physician: Brenden Sapp MD Date of Service: 02/09/25 Procedure(s): XR thoracic spine 3V Accession Number(s): [id number] cc: Brenden Sapp MD Reason for Exam: BACK PAIN EXAMINATION: XR THORACIC SPINE CLINICAL INFORMATION: BACK PAIN COMPARISON: None available. TECHNIQUE: 3 views of the thoracic spine were obtained. FINDINGS: There is a very gentle right convex thoracolumbar scoliosis. There is a normal thoracic kyphosis. There is no fracture, compression deformity, or suspicious bone lesion. There is normal alignment without subluxation. There are multilevel thin anterior flowing syndesmophytes, changes suggestive of ankylosing spondylitis. Mild diffuse disc space narrowing is present. Normal facet alignment. The imaged paravertebral soft tissues, lungs, and mediastinal structures appear grossly normal. XR/XR thoracic spine 3V IMPRESSION: 1. No acute bony abnormalities of the thoracic spine. Mild multilevel degenerative disc changes. 2. Multilevel anterior flowing anterior syndesmophytes, suggestive of possible underlying ankylosing spondylitis. Electronically signed by: Edmundo Cutler MD 02/09/2025 10:19 AM EST Dictated By: Edmundo Cutler MD Signed By: <Electronically signed by Edmundo Cutler MD in OV> 02/09/25 1019 DD/ 1003 TD/TT: 02/09/25 1010 Youth Corrections Officer: [place] [address] XRay Report Signed Patient: Robert Alejandro MR#: [id number] 6 : 1950 Acct:[id number] Age/Sex: 74 / M ADM Date: 02/09/25 Loc: HO.NAVIDAY Attending Dr: Brenden Sapp MD Ordering Physician: Brenden Sapp MD Date of Service: 02/09/25 Procedure(s): XR tho racic spine 3V Accession Number(s): [id number] cc: Brenden Sapp MD Reason for Exam: BACK PAIN EXAMINATION: XR THORACIC SPINE CLINICAL INFORMATION: BACK PAIN COMPARISON: None available. TECHNIQUE: 3 views of the thora cic spine were obtained. FINDINGS: There is a very gent le right convex thoracolumbar scoliosis. There is a normal thoracic kyph osis. There is no fracture, compression deformity, or suspicious bone lesion. There is normal alig nment without subluxation. There are multilevel thin anterior flowing syndesmophytes, changes suggestive of ankylo sing spondylitis. Mild diffuse disc space narrowing is present. Normal facet alignment. The imaged paraverte bral soft tissues, lungs, and mediastinal structures appear gr ossly normal. X R/XR thoracic spine 3V IMPRESSION: 1. No acute bony abn ormalities of the thoracic spine. Mild multilevel degenerative disc changes. 2. Multilevel anteri or flowing anterior syndesmophytes, suggestive of possible underlying ankylosing spondylitis. Electronically celina d by: Edmundo Cutler MD 02/09/2025 10:19 AM EST RP Dictated By: Edmundo Cutler MD Signed By: <Nabil icallmore signed by Edmundo Cutler MD in OV> 02/09/25 1019 DD/ 1003 TD/TT: 02/09/25 1010 Youth Corrections Officer: XR lumbar spine 2-3V (Not y et reviewed by provider) Interpretation: Performing Lab: Notes/Report: [address] [address] XRay Report Signed Patient: Robert Alejandro MR#: [id number] 6 : 1950 Acct:[id number] Age/Sex: 74 / M ADM Date: 02/09/25 Loc: HO.XRAY Attending Dr: Brenden Sapp MD Ordering Physician: Brenden Sapp MD Date of Service: 02/09/25 Procedure(s): XR lumbar spine 2-3V Accession Number(s): [id number] cc: Brenden Sapp MD Reason for Exam: PAIN EXAMINATION: XR LUMBOSACRAL SPINE CLINICAL INFORMATION: PAIN COMPARISON: MRI April 09, 2010 TECHNIQUE: Three views of the lumbosacral spine. FINDINGS: There are 5 nonrib-bearing lumbar segments. There is minimal loss of height at superior L2. T12-L1: There is moderate loss of disc height and endplate osteophytes. L1-L2: There is subtle retrolisthesis and posterior endplate osteophytes. L2-L3: There is subtle retrolisthesis and small anterior L2 osteophyte. L3-L4: There is subtle retrolisthesis and anterior L4 osteophyte. There is facet sclerosis and osteophyte. L4-L5: There is facet sclerosis and osteophytes. L5-S1: There is facet sclerosis and osteophytes. XR/XR lumbar spine 2-3V IMPRESSION: Mild age-indeterminate superior endplate compression fracture of L2. Multilevel degenerative disc disease and facet osteoarthritis is mild. Electronically signed by: Rashawn Arevalo MD 02/09/2025 10:17 AM EST RP Dictated By: Rashawn Arevalo MD Signed By: <Electronically signed by Rashawn Arevalo MD in OV> 02/09/25 1017 DD/ 1008 TD/TT: 02/09/25 1010 Youth Corrections Officer: [place] [address] XRay Report Signed Patient: Robert Alejandro MR#: [id number] 6 : 1950 Acct:[id number] Age/Sex: 74 / M ADM Date: 02/09/25 Loc: HO.XRAY Attending Dr: Brenden Sapp MD Ordering Physician: Brenden Sapp MD Date of Service: 02/09/25 Procedure(s): XR lum bar spine 2-3V Accession Number(s): [id number] cc: Brenden Sapp MD Reason for Exam: PAIN EXAMINATION: XR LUMBOSACRAL SPINE CLINICAL INFORMATION: PAIN COMPARISON: MRI April 09, 2010 TECHNIQUE: Three views of the l umbosacral spine. FINDINGS: There are 5 nonrib-b earing lumbar segments. There is minimal los s of height at superior L2. T12-L1: There is mod erate loss of disc height and endplate osteophytes. L1-L2: There is subt le retrolisthesis and posterior endplate osteophytes. L2-L3: There is subt le retrolisthesis and small anterior L2 osteophyte. L3-L4: There is subt le retrolisthesis and anterior L4 osteophyte. There is facet sclerosis a nd osteophyte. L4-L5: There is face t sclerosis and osteophytes. L5-S1: There is face t sclerosis and osteophytes. X R/XR lumbar spine 2-3V IMPRESSION: Mild age-indetermina te superior endplate compression fracture of L2. Multilevel degenerat chana disc disease and facet osteoarthritis is mild. Electronically celina d by: Rashawn Arevalo MD 02/09/2025 10:17 AM EST Dictated By: Rashawn Arevalo MD Signed By: <Electron ically signed by Rashawn Arevalo MD in OV> 02/09/25 1017 DD/ 1008 TD/TT: 02/09/25 1010 Youth Corrections Officer: REASON FOR VISIT BACK PAIN x 7 months Medications Medication SIG (Take, Route, Frequency, Duration) Notes Start Date End Date Status PARoxetine HCl 20 MG TAKE 1 TABLET BY MO UT EVERY DAY IN THE MORNING FOR 90 DAYS for 90 Active Tamsulosin HCl 0.4 MG 1 capsule Orally t wice a day for 90 days 08/18/2024 Active Atorvastatin Calcium 40 MG TAKE 1 TABLET BY MOUTH EVERY DAY FOR 90 DAYS for 90 Active MiraLax - as directed Orally N ot-Taking Cialis 5 MG 1 tablet Orally for 30 day(s) 11/14/2014 Not-Taking LORazepam 1 MG 1 tablet at bedtime as needed Orally Once a day 02/11/2016 Not-Taking Nitroglycerin 2 % as directed 1/4 inch Transdermal Once a day as needed with pain for 30 days 03/19/2016 Not-Taking Vital Signs Blood pressure systolic 132 mm Hg 02/10/20 25 Blood pressure diastolic 80 mm Hg 025 Height 71 in 02/09/2025 Weight 212 lbs 02/09/2025 BMI 29.56 kg/m2 02/09/2025 Encounters Encounter Location Date Provider Diagnosis Brenden Sapp MD [address] [place] [address] [address] [place] [phone] 02/09/2025 Brenden Sapp Back pain M54.9 and Abdominal pain R10.9 Assessments Encounter Date Diagnosis (ICD Code) Assessment Notes Treatment Notes Treatment Clinical Notes Section Notes 02/09/2025 Back pain (ICD-10 - M54.9) x-ray order given to patient 02/09/2025 Abdominal pain (ICD-10 - R10.9) order faxed to [facility] dept Plan Of Treatment Treatment Notes Assessment Notes Back pain x-ray order given to patient Abdominal pain order faxed to [facility] dept Pending Test Test Name Order Date CT ABD & PELVIS WWO CONTRAST 02/09/2025 XR thoracic spine 3V 02/09/2025 XR lumbar spine 2-3V 02/09/2025 Next Appt Details Follow Up: 3 Weeks, Reason: Provider Name:Brenden olivo, 02/16/2025 01:00:00 PM, [address] [facility] [address], [address], [place], [place], [phone], Progress Notes * Robert ALEJANDRO CDOB:1950 (74 yo M)Acc No.[id number]:02/09/2025 Progress Notes Patient: Robert RODRIGUEZ Provider: Daily Sapp MD :1950 A ge:74 Y S ex:Male Date:02/09/2025 Address: [address] [id number] Subjective: * Chief Complaints: * 1 . BACK PAIN x 7 months. * HPI: S ymptom(s): patient is a 74 yo male here with complaint of back pain/ pain in back the shoots through in mid abdomen. huts to walk. no change in bowels. eating and urination.fine. * ROS: G eneral/Constitutional: Denies C hills. D enies F atigue. D enies F ever. D enies H eadache. E NT: Denies S ore throat. R espiratory: Denies C ough. D enies S hortness of breath at rest. D enies S hortness of breath with exertion. G astrointestinal: Denies D iarrhea. D enies N ausea. * Medical History: c olonoscopy 07/01/2012 - repeat in 5 years w/Dr. Landeros; colonoscopy 02/04/18 - Dr. Landeros due for recall in 02/2023.11/06/22 Colonoscopy pending path. 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 Objective: * Vitals: H t: 71, Wt: 212, BMI:29.56, BP:132/80, Wt-k.16. * Examination: G eneral Examination: GENERAL APPEARANCE: w ell developed, well nourished. HEAD: n ormocephalic. SKIN: g ood turgor. HEART: r egular rate and rhythm, no murmurs, rubs, gallops.? ABDOMEN: s oft, nontender, nondistended, no organomegaly.? BACK: a bnormal the area of the pain is lateral to the thoracic vertebrae. Assessment: * Assessment: 1. B ack pain - M54.9 (Primary) 2 . A bdominal pain - R10.9 ? Plan: * Treatment: 2. A bdominal pain I maging: CT ABD & PELVIS WWO CONTRAST Notes: order faxed to [facility] dept * Follow Up: 3 Weeks * * The named appointment provid er may or may not be the originator of this progress note, and it is not deemed complete until electronically signed by the appointment provider. Sign off status: Pending * Provider: Daily Sapp MD Date: 04/11/2024 Generated for Los virk/Vania/Jaclynitting on: 04/11/2024 11:00 AM EST History and Physical Notes * HPI (History of Present Illness) Category Sub-Category Detail Notes Category Not es Symptom(s) patient is a 74 yo male here with complaint of back pain/ pain in back the shoots through in mid abdomen. huts to walk. no change in bowels. eating and urination.fine. Examination Category Sub-Category Detail Notes Category Not es General Examination GENERAL APPEARANCE: well developed , well nourished HEAD: normocephalic HEART: regular rate and rhy thm, no murmurs, rubs, gallops ABDOMEN: soft, nontender, non distended, no organomegaly SKIN: good turgor BACK: abnormal the area of the pain is lateral to the thoracic vertebrae
--- OUTSIDE RECORDS SUMMARY | 2025-02-09 10:59 | XMS_ITS | Patient Health Record ---
Author Organization Brenden Sapp MD Address [address] [place], [place] [id number] Care Team Providers Care Shoemaking Finisher Name Role Phone Brenden Sapp Primary Care Provider Allergies Allergen (clinical drug ingredient) Drug/Non Drug Allergy documented on EMR Reaction Allergy Type Onset Date Status IVP DYE (uncoded) rash Allergy Ac tive Results Component Value Reference Range Notes Liver Panel Reviewed date:08/11/2024 12:11:47 PM Interpretation: Performing Lab:[facility], [address] [place] [phone] Notes/Report: Bilirubin Total 1.1 0.0-1.0 mg/dL Bilirubin Direct 0.4 0.0-0.5 mg/dL Aspartate Amino Transferase 22 5-37 U/L Alanine Aminotransferase 22 0-40 U/L Total Protein 6.8 6.5-8.0 g/dL Albumin Level 4.0 3.5-5.0 g/dL Alkaline Phosphatase 85 39-117 U/L Lipid Panel with Reflex Reviewed date:08/11/2024 12:32:17 PM Interpretation: Performing Lab:[facility], [address] [place] [phone] Notes/Report: Triglycerides 123 <150 mg/dL Desirable Triglyceride: [...] low results in patients with liver disease. XR thoracic spine 3V (Not ye t reviewed by provider) Interpretation: Performing Lab: Notes/Report: [address] [address] XRay Report Signed Patient: Robert Valderrama MR#: [id number] 6 : 1950 Acct:[id number] Age/Sex: 74 / M ADM Date: 02/09/25 Loc: HO.XRAY Attending Dr: Brenden Sapp MD Ordering Physician: Brenden Sapp MD Date of Service: 02/09/25 Procedure(s): XR thoracic spine 3V Accession Number(s): [id number] cc: Brenden Sapp MD Reason for Exam: [...] by: Edmundo Cutler MD 02/09/2025 10:19 AM [facility] Dictated By: Edmundo Cutler MD Signed By: <Electronically signed by Edmundo Cutler MD in OV> 02/09/25 1019 DD/ 1003 TD/TT: 02/09/25 1010 Box Maker Wood: [address] [address] XRay Report Signed Patient: Robert Valderrama MR#: [id number] 6 : 1950 Acct:[id number] Age/Sex: 74 / M ADM Date: 02/09/25 Loc: HO.XRAY Attending Dr: Brenden Sapp MD Ordering Physician: Brenden Sapp MD Date of Service: 02/09/25 Procedure(s): XR thoracic spine 3V Accession Number(s): [id number] cc: Brenden Sapp MD Reason for Exam: FERCHO K PAIN EXAMINATION: XR THORACIC SPINE CLINICAL INFORMATION: [...] by: Edmundo Cutler MD 02/09/2025 10:19 AM [facility] Dictated By: Edmundo Cutler MD Signed By: <Electronically signed by Edmundo Cutler MD in OV> 02/09/25 1019 DD/ 1003 TD/TT: 02/09/25 1010 Box Maker Wood: XR lumbar spine 2-3V (Not ye t reviewed by provider) Interpretation: Performing Lab: Notes/Report: [address] [address] XRay Report Signed Patient: Robert Valderrama MR#: [id number] 6 : 1950 Acct:[id number] Age/Sex: 74 / M ADM Date: 02/09/25 Loc: HO.XRAY Attending Dr: Brenden Sapp MD Ordering Physician: Brenden Sapp MD Date of Service: 02/09/25 Procedure(s): XR lumbar spine 2-3V Accession Number(s): [id number] cc: Brenden Sapp MD Reason for Exam: [...] by: Rashawn Arevalo MD 02/09/2025 10:17 AM [facility] Dictated By: Rashawn Arevalo MD Signed By: <Electronically signed by Rashawn Arevalo MD in OV> 02/09/25 1017 DD/ 1008 TD/TT: 02/09/25 1010 Box Maker Wood: [address] [address] XRay Report Signed Patient: Robert Valderrama MR#: [id number] 6 : 1950 Acct:[id number] Age/Sex: 74 / M ADM Date: 02/09/25 Loc: HOThiernoXRAY Attending Dr: Brenden Sapp MD Ordering Physician: Brenden Sapp MD Date of Service: 02/09/25 Procedure(s): XR lum bar spine 2-3V Accession Number(s): [id number] cc: Brenden Sapp MD Reason for Exam: PAIN EXAMINATION: XR LUMBOSACRAL SPINE CLINICAL INFORMATION: PAIN COMPARISON: MRI April 09, 2010 TECHNIQUE: Three views of the lumbosacral spine. FINDINGS: There are 5 nonrib-bearing lumbar segments. There is minimal los s [...] There is face t sclerosis and osteophytes. XR/XR lumbar spine 2-3V IMPRESSION: Mild age-indetermina te superior endplate compression fracture of L2. Multilevel degenerat chana disc disease and facet osteoarthritis is mild. Electronically celina d by: Rashawn Arevalo MD 02/09/2025 10:17 AM [facility] Dictated By: Rashawn Arevalo MD Signed By: <Electronically signed by Rashawn Arevalo MD in OV> 02/09/25 1017 DD/ 1008 TD/TT: 02/09/25 1010 Box Maker Wood: Occult Blood, Stool, Guaiac Reviewed date:02/11/2024 01:36:41 PM Interpretation:Negative Performing Lab: Notes/Report: Negative Occult Blood, Stool, Guaiac Neg Hold Gold Reviewed date:08/11/2024 12:11:23 PM Interpretation: Performing Lab:[facility], [address] [place] [phone] Notes/Report: Hold Gold See Note Specimen held [...] Referred Provider Specialty Hand Surgery General Notes YoelgageSherieLongSherrie Eubanks 02/11/2024 01:42:27 PM EST > REFERRAL FAXED TO [facility] KARINE CashSherrie Renner 03/13/2024 12:52:40 PM EST > OFFICE NOTES [...] tablet Orally for 30 day(s) 11/14/2014 Not-Taking Immunizations Vaccine Route Administration Date Status Comme [...] [facility] TDaP Unknown 01/08/2020 Administered had at [facility] SARS-COV-2 Pfizer Unknown 06/10/2020 Administered SARS-COV-2 [...] Problem Status W/U Status Risk Notes Problem 66654308 Hypokalemia (E87.6) Active confirmed Problem 99273929 Prostatism (N40.0) Active confirmed Problem 62140167 Anxiety (F41.9) Active confirmed Problem 260134094 Diverticulitis (K57.92) Active confirmed Problem 08357490 Slow transit constipation (K59.01) Active confirmed Problem 560787176 Prostate cancer (C61) Active confirme d Problem 476995823 Cervical disc di sease (M50.90) Active confirmed Problem 827702510362859 History of diverticulitis (Z87.19) Active confirmed Problem 051117838238467 Carpal tunnel sy ndrome of left wrist (G56.02) Active confirmed Problem Leukopenia (73866245) Leukopenia, unspecified type (D72.819) Active confirmed Problem 351472936 Moderate episode of recurrent major depressive disorder (F33.1) Active confirmed Problem 52999984 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) Active confirmed Problem 278588420 Pure hypercholesterolemia (E78.00) Active confirmed Problem 361595840 Serrated polyp o f colon (K63.5) Active confirmed Problem Carpal tunnel syndrome (44967415) Carpal tunnel syndrome, left (G56.02) Active confirmed Vital Signs Blood pressure diastolic 80 mm Hg 02/09/2025 Height 71 in 02/09/2025 Blood pressure systolic 132 mm Hg 02/09/2025 Weight 212 lbs 02/09/2025 BMI 29.56 kg/m2 02/09/2025 Encounters Encounter Location Date Provider Diagnosis Brendne Sapp MD [address] [place] [id number] 05/25/2024 Brenden Sapp MD [address] [id number] 08/11/2024 Brenden Sapp Pure hypercholestero lemia E78.00 Brenden Sapp MD [address] [id number] 02/09/2025 Brenden Sapp Hypokalemia E87.6 ; Pure hypercholesterolemia E78.00 ; Prostatism N40.0 and Leukopenia, unspecified type D72.819 Brenden Sapp MD [address] [place] [id number] 02/09/2025 Brenden Sapp Back pain M54.9 and Abdominal pain R10.9 Brenden aSpp MD [address] [place] [id number] 02/11/2024 Brenden Sapp Carpal tunnel syndro me of left wrist G56.02 ; Prostate cancer C61 ; Anxiety F41.9 ; Pure hypercholesterolemia E78.00 ; Colon cancer screening Z12.11 and Depression screening Z13.31 Brenden Sapp MD [address] [place] [id number] 08/18/2024 Brenden Sapp Prostate cancer C61 ; Pure hypercholesterolemia E78.00 and Prostatism N40.0 Brenden Sapp MD [address] [place] [id number] 08/11/2024 Brenden Sapp MD [address] [id number] 02/29/2024 Brenden Sapp Assessments Encounter Date Diagnosis (ICD Code) Assessment Notes Treatment Notes Treatment Clinical Notes Section Notes 08/11/2024 Pure hypercholesterolemia (ICD-10 - E78.00) 02/09/2025 Hypokalemia (ICD-10 - E87.6) 02/09/2025 Back pain (ICD-10 - M54.9) x-ray order given to patient 02/09/2025 Abdominal pain (ICD- 10 - R10.9) order faxed to [facility] CS dept 02/11/2024 Carpal tunnel syndro me of left wrist (ICD-10 - G56.02) referral to hand surgeon at [facility]/REFERRAL MADE TO DR ROJAS, THEY WILL CONTACT PATIENT 02/11/2024 Prostate cancer (ICD -10 - C61) need notes from dr taylor/ REQUEST MADE TO [facility] MED RECORDS 08/18/2024 Prostate cancer (ICD -10 - C61) 08/18/2024 Pure hypercholesterolemia (ICD-10 - E78.00) doing well 02/09/2025 Pure hypercholesterolemia (ICD-10 - E78.00) 02/11/2024 Anxiety (ICD-10 - F41.9) sta ble, will contonue current regiment doing well on paroxitne 08/18/2024 Prostatism (ICD-10 - N40.0) will start tamsulosin 02/09/2025 Prostatism (ICD-10 - N40.0) 02/11/2024 Pure hypercholesterolemia (ICD-10 - E78.00) stable, will continue current regiment 02/09/2025 Leukopenia, unspecif ied type (ICD-10 - D72.819) 02/11/2024 Colon cancer screeni ng (ICD-10 - Z12.11) guaiac negative 02/11/2024 Depression screening (ICD-10 - Z13.31) negative screen Plan Of Treatment Pending Test Test Name Order Date CT ABD & PELVIS WWO CONTRAST 02/09/2025 Complete Blood Count Auto Diff Comprehensive [place]. Panel Fast Lipid Panel 02/09/2025 PSA,Total (Free>4and<10) 02/09/2025 XR thoracic spine 3V 02/09/2025 XR lumbar spine 2-3V 02/09/2025 UA ClnCatch+Micro w/rflx Cult 02/09/2025 PSA, TOTAL 01/03/2019 Next Appt Details Provider Name:Brenden Gallagher ier, 02/16/2025 01:00:00 PM, [address], [address], [place], [place], [id number], Insurance Providers Payer Name Payer Address Payer Phone Subscriber Number Group Number Insured Name Patient Relationship to Insured Coverage Start Date Coverage End Date MEDICARE [employer] [address] [place] [address] [id number] Robert Valderrama Self - patient is the insured [employer] [facility] [address] [place], [place] [id number] Robert Valderrama Self - patient is the insured Medical (General) History Medical History History ICD Code colonoscopy 07/01/2012 - repe at in 5 years w/Dr. Landeros; colonoscopy 02/04/18 - Dr. Landeros due for recall in 02/2023.11/06/22 Colonoscopy pending path
--- OUTSIDE RECORDS SUMMARY | 2025-02-09 11:00 | XMS_ITS | Clinical Summary ---
Author Organization [facility] Address [address] [place] [phone] Phone Care Team Providers Care Social Media Project Manager Name Role Phone Unknown, Unknown Primary Care Provider Ángel hayes Social History Tobacco Use Types Packs/Day Years Used Date Smoking Tobacco: Never Assessed Education Answer Date Recorded Are you interested in more education? Not on amara e 07/31/2022 Are you concerned about learning? Not on file 07/31/2022 No 07/31/2022 No 07/31/2022 Digital Access Answer Date Recorded No 08/29/2022 No 08/29/2022 No 08/29/2022 Reliable internet access at home? Not on file 08/29/2022 Device with a working camera? Not on file Sex and Gender Information Value Date Recorded Sex Assigned at Not on file Legal Sex Male 10:00 PM EDT Gender Identity Not on file Sexual Orientation Not on file Plan of Treatment Health Maintenance Due Date Last Done Comments LIPID PANEL 1950 DEPRESSION SCREENING 1963 SMOKING Hx and SMOKELESS TOBACCO SCREENING 09/30/1964 HEPATITIS C SCREENING 09/30/1969 COLOGUARD 09/30/1996 COLONOSCOPY 09/30/1996 COLORECTAL CANCER SCREENING 09/30/1996 FIT TEST 09/30/1996 FOBT 09/30/1996 SIGMOIDOSCOPY 09/30/1996 VIRTUAL COLONOSCOPY 09/30/1996 ZOSTER VACCINES (2 of 3) 07/23/2016 05/28/2016 PNEUMOCOCCAL VACCINES (50+ years) (3 of 3 - PCV20 or PCV21) 06/21/2022 06/21/2017, 11/18/2015 INFLUENZA VACCINE (#1) 2024 , 12/27/2018, 12/21/2017, Additional history exists COVID-19 VACCINE (3 - 2024- season) 2024 07/01/2020, 06/10/2020 RSV VACCINE (1 - 1-dose 75+ series) 09/30/2026 Adult Td,Tdap Booster 01/07/2030 01/08/2020 HEPATITIS A VACCINES Aged Out No long er eligible based on patient's age to complete this topic HIB VACCINES Aged Out No longer eligi ble based on patient's age to complete this topic MENINGOCOCCAL VACCINES (ACWY) Aged Out No longer eligible based on patient's age to complete this topic MENINGOCOCCAL VACCINES (B) Aged Out N o longer eligible based on patient's age to complete this topic Medical Devices Not on file Insurance [facility] MEDICARE PART A & B [facility] MEDIC[facility] PART A & B [facility] MEDIC[facility] PART A & B [facility] MEDICARE PART A & B [facility] MEDICARE PART A & B [facility] MEDICARE PART A & B [facility] MEDICARE PART A & B [facility] MEDICARE PART A & B [facility] MEDICARE PART A & B Care Teams Social Media Project Manager Relationship Specialty Start Date End Date Unknown, Unknown, PCP - General 09/14/19 Additional Source Comments The information contained in this document represents components of the legal health record. It is not the complete legal health record.[facility]
--- OUTSIDE RECORDS SUMMARY | 2025-02-09 11:00 | XMS_ITS | Patient Health Record ---
Author Organization [facility] Address [address] [place] [phone] Care Team Providers Care Financial Planning Advisor Name Role Phone Brenden Sapp MD Primary Care Provider Bartolome Pink Jr [phone] Allergies Allergen (clinical drug ingredient) Drug/Non Drug [...] at 5:00 p.m. the day before the procedure; Duration: 1 day 2022 Active PARoxetine HCl 20mg Active Problems Problem Type SNOMED Code ICD Code Onset Dates Problem Status W/U Status Risk Notes Problem Colon cancer screening (116001370) Colon cancer screening (Z12.11) Active confirmed Problem Irritable bowel syndrome characterized by constipation (256656993) Irritable bowel syndrome with constipation (K58.9) Active confirmed Problem Irritable bowel syndrome characterized by constipation (893181750) Irritable bowel syndrome with constipation (K58.1) Active confirmed Plan Of Treatment Future Test Test Name Order Date COLONOSCOPY 06/23/2012 COLONOSCOPY 12/09/2017 COLONOSCOPY 2022 Insurance Providers Payer Name Payer Address Payer Phone Subscriber Number Group Number Insured Name Patient Relationship to Insured Coverage Start Date Coverage End Date MEDICARE [place] [address] [place] [address] [phone] [id number] DOMENICA ALEJANDRO Self - patient is the insured [facility] [address] [place], [place] [id number] [phone] [id number] DOMENICA ALEJANDRO Self - patient is the insured Medical (General) History Medical History History ICD Code Colonoscopy 02/04/18, sessile serrated po lyp, five-year followup Elevated PSA/BPH kidney cancer 12/2010 kidney stones Hyperlipidemia Hypertension Surgical History Surgery Date(Month/Year) surgery for kidney cancer Adenoidectomy kidney stones cyst removed from back 2017 Right inguinal hernia repair 2021
== END 2025-02-09 09:38 | disposition home or self-care (01) ==
LOC: HO.XRAY 09:37
PROVIDERS: PCP Internal Medicine; Visit Provider Internal Medicine
DX: Z13.89 Encounter for screening for other disorder (principal)
CPT/HCPCS: 72072; 72100

== ENCOUNTER → 2025-02-09 10:03 | Outpatient (BNV) | payer MEDICARE, BC, SELFPAY | PROVIDERS: PCP Internal Medicine; Visit Provider Radiology Diagnostic Radiology | DX: M51.34 Other intervertebral disc degeneration, thoracic region (principal); M51.370 Other intervertebral disc degeneration, lumbosacral region with discogenic back pain only; M47.817 Spondylosis without myelopathy or radiculopathy, lumbosacral region | CPT/HCPCS: 72072 ==

== ENCOUNTER 2025-02-09 10:56 | Outpatient (REF) | payer MEDICARE, BC, SELFPAY ==
[2025-02-09 11:02] LABS: MANUAL DIFF FLAG NO
[2025-02-09 11:37] LABS: Appearance Urine Clear; Glucose Urine UA Negative (Negative); PH 6.5 (5.0-9.0); Specific Gravity - Urine 1.025 (1.005-1.025)
[2025-02-09 11:55] LABS: Alanine Aminotransferase 19 U/L (0-40); Albumin Level 4.3 g/dL (3.5-5.0); Alkaline Phosphatase 86 U/L (39-117); Anion Gap 10 (12-20); Aspartate Amino Transferase 25 U/L (5-37); Blood Urea Nitrogen 17 mg/dL (9-16); Calcium 8.5 mg/dL (8.4-10.2); Carbon Dioxide 28 mmol/L (22-29); Chloride 108 mmol/L (96-108); Cholesterol 148 mg/dL (<200); Estimated Glomerular Filt Rate > 60; HDL Cholesterol 44 mg/dL (>40); Potassium 3.9 mmol/L (3.3-5.1); Sodium 142 mmol/L (135-145); Total Protein 7.0 g/dL (6.5-8.0); Triglycerides 105 mg/dL (<150)
[2025-02-09 11:58] LABS: Hematocrit 44.1 % (42.0-52.0); Hemoglobin 14.9 g/dl (14.0-18.0); Imm Gran Abs Auto 0.01 X10*3/uL (0.00-0.03); Imm Gran Pct Auto 0.2 % (0.0-0.4); Lymphocytes Absolute Auto 1.7 X10*3/uL (1.2-4.9); Mean Corpuscular HGB Conc 33.8 g/dl (31.0-36.0); Mean Corpuscular Hemoglobin 29.3 pg (27.0-33.0); Mean Corpuscular Volume 86.8 fL (80.0-98.0); NRBC Abs Auto 0.000 X10*3/uL (0.0-0.012); NRBC Pct Auto 0.0 /100WBC (0.0-0.2); Platelet Count 168 X10*3/uL (160-400); Red Blood Count 5.08 X10*6/uL (4.60-5.80); White Blood Count 4.5 X10*3/uL (4.8-10.8)
[2025-02-09 12:16] LABS: PSA,Total (Free>4and<10) 1.32 ng/mL (0.00-4.00)
== END 2025-02-09 10:57 | disposition home or self-care (01) ==
LOC: HO.LNP 10:56
PROVIDERS: Visit Provider Internal Medicine
DX: Z12.5 Encounter for screening for malignant neoplasm of prostate (principal); N40.0 Benign prostatic hyperplasia without lower urinary tract symptoms; E78.00 Pure hypercholesterolemia, unspecified; D72.819 Decreased white blood cell count, unspecified; E87.6 Hypokalemia
CPT/HCPCS: 72072; 72100; 80053; 80061; 81001; 84153; 85025